=== PATIENT | female | born 1945 | race Caucasian/White ===

== ENCOUNTER 2019-08-30 17:22 | Inpatient (IN) | payer MEDICARE, OTHER ==
[2019-08-30] MEDS ORDERED: Sodium Chloride 0.9% 1000 ML 1,000 ML IV STA (17:34)
--- NOTE | 2019-08-30 17:42 | ERPHSYRPT ---
- History of Present Illness Time Seen by Provider: 08/30/19 17:33 Source: patient, family, EMS, old records Exam Limitations: no limitations Physician History: PT IS A SUPER OBESE 74 Y/O FEMALE VIA EMS C/O > 2 MOST OF GENERALIZED WEAKNESS AND FREQUENT FALLS AND A "BUTTOX ABSCESS I WANT YOU TO LOOK AT ." PT STATES SHE FELL IN SEPT CATCHING RIGHT FOOT ON RUG AND SINCE THEN FEELS HER RLE IS WEAK " I TELL IT TO KICK THE SHIT OUT OF SOMEONE AND IT DOESNT OBEY." NO OTHER FOCAL WEAKNESS. FEELS GLOBALLY WEAK. USES WALKER BUT STATES OVER LAST FEW WEEKS INCREASINGLY CANNOT STAND OR GET AROUND EVEN WITH THAT. HAS RIGHT BUTTOCK LESION SHE REPORTS IS FOLLOWED BY [facility] AND WAS TOLD WOULD NEED TO SEE A SURGEON. NOT SURE IF DRAINING. NO FEVER/DYSURIA/HEMATURIA/URGENCY/FREQUENCY/CP/ SOB/N/V/VISUAL CHANGES/DYSARTHRIA/AMS/HEAD INJURY. PT REPORTS DEPRESSION BUT NO SI/AH/HI. LIVES WITH HER . FEELS HARDER TO CARE FOR HER AT HOME DUE TO BODY HABITUS AND WEAKNESS. Allergies/Adverse Reactions: No Known Drug Allergies Allergy (Verified 08/30/19 17:40) Home Medications: Amlodipine Besylate/Benazepril [Amlodipine-Benazepril 10-40 mg] 1 each PO DAILY 03/03/18 [History] Apixaban [Eliquis 5 mg Tablet] 5 mg PO BID 03/03/18 [History] Ceftriaxone in Is-Osm Dextrose [Ceftriaxone 2 gm Piggyback] 2 gm IV DAILY [History] Furosemide 40 mg [Lasix 40 MG] 40 mg PO DAILY PRN 03/03/18 [History] Hydrocodone Bit/Acetaminophen [Hydrocodon-Acetaminophen 5-325] 1 each PO TID PRN 03/03/18 [History] Metformin HCl 500 mg [Glucophage 500 MG] 500 mg PO DAILY 03/03/18 [History ] Naproxen 250 mg PO Q8HPRN PRN 03/03/18 [History] raNITIdine HCl [Ranitidine HCl] 150 mg PO DAILY 03/03/18 [History] - Review of Systems Constitutional: No Symptoms, Chills, Fatigue, Weakness, Other (ANOREXIA), No Fever, No Lethargy, No Malaise, No Night Sweats, No Weight Loss Eyes: No Symptoms, No Discharge, No Eye Pain, No Eye Redness, No Itchy, No Photophobia, No Tearing, No Vision Changes, No Double Vision, No Foreign Body Sensation Ears, Nose, & Throat: No Symptoms, No Ear Pain, No Ear Discharge, No Hearing Changes, No Tinnitus, No Nose Congestion, No Nose Discharge, No Epistaxis, No Mouth Pain, No Mouth Swelling, No Throat Pain, No Throat Swelling, No Hoarse, No Painful Swallowing, No Stridor Respiratory: No Symptoms, No Cough, No Cyanosis, No Dyspnea, No Dyspnea on Exertion (ANDREWS), No Stridor, No Wheezing Cardiac: No Symptoms, No Chest Pain, No Edema, No Palpitations, No Syncope, No Orthopnea Abdominal/Gastrointestinal: No Symptoms, No Abdominal Pain, No Nausea, No Vomiting, No Diarrhea, No Constipation, No Hematemesis, No Hematochezia, No Melena, No Dysphagia, No Appetite Changes Genitourinary Symptoms: No Symptoms, No Dysuria, No Frequency, No Hematuria, No Hesitancy, No Incontinence, No Urgency, No Urinary Retention, No Flank Pain, No Menorrhagia, No , No Vaginal Bleeding, No Vaginal Discharge Musculoskeletal: No Symptoms, No Arthralgias, No Back Pain, No Neck Pain, No Deformity, No Fall, No Injury, No Joint Redness, No Joint Pain, No Joint Swelling, No Myalgias Skin: No Symptoms, Decubiti, Skin Lesions, No Cellulitis, No Induration, No Pruritis, No Rash, No Dryness Neurological: No Symptoms, No Dizziness, No Focal Weakness, No Gait Changes, No Headache, No Irritability, No Lethargy, No Paralysis, No Parasthesia, No Seizure , No Sensory Changes, No Speech Changes, No Tics, No Tremors, No Vertigo Psychological: No Symptoms, No Alcohol Abuse, No Drug Abuse, No Anxiety, No Depression, No Suicidal Ideations, No Homicidal Ideations, No Emotional Lability , No Hallucinations, No Memory Loss, No Mood Changes Endocrine: No Symptoms, No Polyuria, No Polydipsia, No Hair Changes, No Cold Intolerance, No Excessive Sweating, No Goiter Hematologic/Lymphatic: No Symptoms, No Anemia, No Blood Clots, No Easy Bleeding , No Gum Bleeding, No Easy Bruising, No Adenopathy Immunological/Allergic: No Symptoms All Other Systems: Reviewed and Negative - Past Medical History Pertinent Past Medical History: Yes Neurological History: No Pertinent History ENT History: No Pertinent History Cardiac History: Hypertension, Other Respiratory History: No Pertinent History Endocrine Medical History: Diabetes Type II Musculoskeletal History: Arthritis GI Medical History: Gallbladder Disease, Other History: Other Psycho-Social History: No Pertinent History Female Reproductive Disorders: No Pertinent History Other Medical History: kidney abcess right,constipation - Past Surgical History Past Surgical History: Yes Neuro Surgical History: No Pertinent History Cardiac: No Pertinent History Respiratory: No Pertinent History Gastrointestinal: Cholecystectomy Genitourinary: Other Musculoskeletal: No Pertinent History Female Surgical History: No Pertinent History Other Surgical History: kidney had J.P. drain placed - Social History Smoking Status: Never smoker Exposure to second hand smoke: No Drug Use: none - Nursing Vital Signs Nursing Vital Signs: Initial Vital Signs Temperature 97.9 F 08/30/19 17:29 Pulse Rate 65 08/30/19 17:29 Respiratory Rate 22 08/30/19 17:29 Blood Pressure 110/67 08/30/19 17:29 O2 Sat by Pulse Oximetry 97 08/30/19 17:29 Pain Scale Pain Intensity 0 - Physical Exam General Appearance: no apparent distress, alert, obese (SUPER OBESE), other ( PALE) Eye Exam: PERRL/EOMI, eyes nml inspection, other (fundi normal dallin), No scleral icterus, No pale conjunctivae, No photophobia, No EOM palsy/anisocoria Ears, Nose, Throat Exam: normal ENT inspection, TMs normal, pharynx normal, TM abnormal (L), other (uvula midline, floor of mouth soft), No moist mucous membranes, No dry mucous membranes, No TM abnormal (R), No pharyngeal erythema, No tonsillar exudate Neck Exam: normal inspection, non-tender, supple, full range of motion, No meningismus, No mass, No Brudzinski, No Kernig's, No carotid bruit, No JVD, No limited range of motion, No lymphadenopathy, No midline tenderness, No thyromegaly Respiratory Exam: normal breath sounds, lungs clear, airway intact, diminished breath sounds, No chest tenderness, No respiratory distress, No accessory muscle use, No prolonged expirations, No crackles/rales, No rhonchi, No wheezing , No stridor, No pleural rub Cardiovascular Exam: regular rate/rhythm, normal heart sounds, normal peripheral pulses, capillary refill <2 sec, No murmur, No friction rub, No gallop, No tachycardia, No bradycardia, No irregular, No capillary refill 2-3 sec, No capillary refill >3 sec, No edema, No pulse deficit Gastrointestinal/Abdomen Exam: soft, normal bowel sounds, other (SEVERE YEAST INFECTION IN PANNUS WITH DALLIN FLANK SATELLITS, RIGHT FLANK SMALL QUATER SIZE PRESSURE ULCER WITHOUT ERYTHEMA/WARMTH/EDEMA/PURULENCE ), No tenderness, No distention, No mass, No guarding, No ecchymosis, No pulsatile mass, No rebound, No hernia, No hepatomegaly, No organomegaly, No splenomegaly, No bruit Pelvic Exam: normal external exam Rectal Exam: deferred Back Exam: normal inspection, normal range of motion, other (neg slr dallin, no sacral anesthesia, dtr 2/4 dallin patella), No CVA tenderness, No vertebral tenderness, No rash, No decreased range of motion, No muscle spasm, No point tenderness Extremity Exam: normal inspection, normal range of motion, pelvis stable, No amputations, No contusions, No calf tenderness, No deformities, No lacerations, No parasthesia, No paralysis, No inflammation, No joint swelling, No limited range of motion, No pedal edema, No swelling, No tenderness Neurologic Exam: alert, oriented x 3, cooperative, international recruiter II-XII nml as tested, normal mood/affect, nml cerebellar function, nml station & gait, sensation nml, No motor deficits, No sensory deficit, No disoriented, No confusion, No agitation, No uncooperative, No intoxicated appearance, No depressed mood/affect , No motor weakness, No facial droop, No slurred speech, No aphasia, No dysarthria, No abnormal gait, No abnormal cerebellar tests, No abnormal international recruiter II- XII, No EOM palsy Skin Exam: normal color, warm, dry, decubitus (STAGE ONE IN BUTTOX), other ( SEVERE YEAST INFECTION IN PANNUS WITH DALLIN FLANK SATELLITS, RIGHT FLANK SMALL QUATER SIZE PRESSURE ULCER WITHOUT ERYTHEMA/WARMTH/EDEMA/PURULENCE ), No rash, No petechiae, No jaundice, No abrasion, No cyanosis, No diaphoresis, No embolic lesions, No ecchymosis, No jaundice, No laceration, No mottled, No pale Lymphatic Exam: No adenopathy SpO2 Interpretation: normal O2 Delivery: Room Air - Course Nursing assessment & vital signs reviewed: Yes EKG Interpreted by Me: RATE (71), A-fib, NORMAL AXIS, NORMAL QRS, NORMAL ST-T Ordered Tests: Active Orders 24 hr Category Date Time Status Accucheck STAT Care 08/30/19 17:34 Active Stagecraft Professor STAT Care 08/30/19 17:36 Active EKG-ER Only STAT Care 08/30/19 17:34 Active IV Insertion STAT Care 08/30/19 17:34 Active Orthostatic Vital Signs STAT Care 08/30/19 17:34 Active CHEST 1 VIEW (PORTABLE) Stat Exams 08/30/19 17:35 Ordered HEAD WITHOUT CONTRAST [CT] Stat Exams 08/30/19 17:35 Ordered CBC W DIFF Stat Lab 08/30/19 17:50 Completed CMP Stat Lab 08/30/19 17:50 Completed CULTURE,URINE Stat Lab 08/30/19 19:13 Ordered Lactic Acid Stat Lab 08/30/19 17:50 Results MAGNESIUM Stat Lab 08/30/19 17:50 Completed TROPONIN Q3H Lab 08/30/19 17:50 Received TROPONIN Q3H Lab 08/30/19 20:45 Ordered TROPONIN Q3H Lab 08/30/19 23:45 Ordered TROPONIN Q3H Lab 08/31/19 02:45 Ordered TROPONIN Q3H Lab 08/31/19 05:45 Ordered TSH [TSH, 3RD Generation] Stat Lab 08/30/19 17:50 Received UA W/RFX UR CULTURE Stat Lab 08/30/19 17:35 Ordered Medication Summary Discontinued Medications Generic Name Dose Route Start Last Admin Trade Name Freq PRN Reason Stop Dose Admin Fluconazole 150 mg 08/30/19 17:45 08/30/19 18:29 Diflucan PO 08/30/19 17:46 150 mg ONCE ONE Administration Fluconazole Confirm 08/30/19 18:20 Diflucan 100 Mg Administered 08/30/19 18:21 Dose 100 mg .ROUTE .STK-MED ONE Fluconazole Confirm 08/30/19 18:24 Diflucan 100 Mg Administered 08/30/19 18:25 Dose 100 mg .ROUTE .STK-MED ONE Sodium Chloride 1,000 mls @ 999 mls/hr 08/30/19 17:34 08/30/19 18:18 Sodium Chloride 0.9% 1000 Ml IV 08/30/19 18:34 999 mls/hr .Q1H1M STA Administration Sodium Chloride Confirm 08/30/19 18:16 Sodium Chloride 0.9% 1000 Ml Administered 08/30/19 18:17 Dose 1,000 mls @ ud .ROUTE .STK-MED ONE Lab/Rad Data: Laboratory Result Diagrams 08/30/19 17:50 08/30/19 17:50 Laboratory Results 08/30/19 08/30/19 08/30/19 Range/Units 17:50 17:50 17:50 WBC 6.7 (4.0-10.5) K/mm3 RBC 3.15 L (4.1-5.4) M/mm3 Hgb 8.1 L (12.0-16.0) gm/dl Hct 26.7 L (35-47) % MCV 84.8 (78-100) fl MCH 25.7 L (26-32) pg MCHC 30.3 L (32-36) g/dl RDW 16.4 H (11.5-14.0) % Plt Count 330 (150-450) K/mm3 MPV 9.4 (6-9.5) fl Gran % 74.7 H (36.0-66.0) % Eos # (Auto) 0.12 (0-0.5) Absolute Lymphs (auto) 1.22 (1.0-4.6) Absolute Monos (auto) 0.35 (0.0-1.3) Lymphocytes % 18.2 L (24.0-44.0) % Monocytes % 5.2 (0.0-12.0) % Eosinophils % 1.8 (0.00-5.0) % Basophils % 0.1 (0.0-0.4) % Absolute Granulocytes 5.00 (1.4-6.9) Basophils # 0.01 (0-0.4) Sodium 139 (137-145) mmol/L Potassium 4.0 (3.5-5.1) mmol/L Chloride 105 (98-107) mmol/L Carbon Dioxide 24 (22-30) mmol/L Anion Gap 14.5 (5-15) MEQ/L BUN 12 (7-17) mg/dL Creatinine 0.90 (0.52-1.04) mg/dL Estimated GFR > 60.0 ML/MIN Glucose 125 H (74-106) mg/dL Lactic Acid 3.0 H (0.4-2.0) Calcium 8.5 (8.4-10.2) mg/dL Magnesium 1.4 L (1.6-2.3) mg/dL Total Bilirubin 0.40 (0.2-1.3) mg/dL AST 22 (14-36) U/L ALT 14 (0-35) U/L Alkaline Phosphatase 128 H (38-126) U/L Serum Total Protein 6.1 L (6.3-8.2) g/dL Albumin 3.0 L (3.5-5.0) g/dL - Progress Progress: unchanged Progress Note: 08/30/19 18:31 HGB 8.1 NO OLD TO COMPARE WITH. PT DOES APPEAR PALE. WILL ATTEMPT HEMOCCULT BUT PT SUPER OBESE DIFFICULT TO MANEUVER DENIES MELENA WILL TYPE AND SCREEN. PLAN ADMISSION TO [facility]. PT DOES NOT AMBULATE. WILL PLACE PERLA CATHETER. FINDINGS REVIEWED WITH PT ALL QUESTIONS ANSWERED TO HER SATISFACTION 08/30/19 19:[address] ISBELL ACEPTS ADMIT CARE TRANSFERRED DR PAIGE WILL MONITOR CT HEAD, CXR, LABS, UA AND ADDRESS NECESSARY FINDINGS REVIEWED WITH PT ALL QUESTIONS ANSWERED TO HER SATISFACTION Discussed with Dr.: Jeffrey Counseled pt/family regarding: drug and/or alcohol abuse, lab results, diagnosis , need for follow-up, rad results, smoking cessation - Departure Departure Disposition: Observation Clinical Impression: Symptomatic anemia, Morbid obesity Condition: Fair Critical Care Time: No Referrals: JUANITA SMITH MD [Primary Care Provider] -
[2019-08-30] MEDS ORDERED: DIFLUCAN PO ONE (17:45)
[2019-08-30 18:03] LABS: BASOPHIL % 0.1 % (0.0-0.4); Basophil (Absolute #) 0.01 (0-0.4); Eosinophil % 1.8 % (0.00-5.0); Eosinophil (Absolute #) 0.12 (0-0.5); Hematocrit 26.7 % (35-47); Hemoglobin 8.1 gm/dl (12.0-16.0); Lymphocyte (Absolute #) 1.22 (1.0-4.6); Lymphocytes % 18.2 % (24.0-44.0); Mean Cell Volume 84.8 fl (78-100); Mean Corpuscular Hemoglobin 25.7 pg (26-32); Mean Corpuscular Hgb Concent. 30.3 g/dl (32-36); Mean Platelet Volume 9.4 fl (6-9.5); Monocyte (Absolute #) 0.35 (0.0-1.3); Monocytes % 5.2 % (0.0-12.0); Neutrophil % 74.7 % (36.0-66.0); Platelet Count 330 K/mm3 (150-450); Red Blood Count 3.15 M/mm3 (4.1-5.4); Red Cell Distribution Width 16.4 % (11.5-14.0); White Blood Count 6.7 K/mm3 (4.0-10.5)
[2019-08-30] MEDS ORDERED: Sodium Chloride 0.9% 1000 ML 1,000 ML ONE (18:16)
[2019-08-30] MEDS ORDERED: Diflucan 100 MG ONE ×2 (18:20→18:24)
[2019-08-30 18:27] LABS: ALKALINE PHOSPHATASE 128 U/L (38-126); ANION GAP 14.5 MEQ/L (5-15); BLOOD UREA NITROGEN 12 mg/dL (7-17); CHLORIDE 105 mmol/L (98-107); Calcium 8.5 mg/dL (8.4-10.2); Carbon Dioxide 24 mmol/L (22-30); Glucose 125 mg/dL (74-106); MAGNESIUM 1.4 mg/dL (1.6-2.3); SGOT/AST 22 U/L (14-36); SGPT/ALT 14 U/L (0-35); SODIUM 139 mmol/L (137-145); Total Protein 6.1 g/dL (6.3-8.2)
[2019-08-30] MEDS ORDERED: PROTONIX 40 MG IV IV ONE ×4 (19:22→22:02)
[2019-08-30 19:27] LABS: Appearance SLIGHTLY CLOUDY (CLEAR); Bilirubin NEGATIVE (NEGATIVE); Blood NEGATIVE Ery/ul (0-5); Glucose NEGATIVE (NEGATIVE); Ketones NEGATIVE (NEGATIVE); Leukocyte Esterase NEGATIVE (NEGATIVE); Mucus SLIGHT /HPF (NEGATIVE); Nitrite NEGATIVE (NEGATIVE); Protein,Urine Dip 100 (Negative); Specific Gravity 1.023 (1.005-1.025); Urobilinogen 4 mg/dL (0-1); WBC 0-2 /HPF (0-5)
[2019-08-30 20:18] LABS: ABO TYPING O; Antibody Screen NEGATIVE (NEGATIVE); RH TYPING POSITIVE
[2019-08-30] MEDS ORDERED: Sodium Chloride 0.9% 500 ML 500 ML IV ONE (21:58)
[2019-08-30] MEDS: PROTONIX 40 MG IV*** 80 MG in Sodium Chloride 0.9% 500 ML 500 ML IV SCH (22:09)
[2019-08-31] MEDS: ELIQUIS 2.5 MG TABLET PO SCH ×2 (02:06→10:06)
[2019-08-31] MEDS: BACTRIM DS TABLET PO SCH ×3 (02:06→22:37)
[2019-08-31] MEDS ORDERED: NON-FORMULARY ITEM (Acetaminophen [Tylenol Arthritis] 650 MG) PO PRN (09:42)
[2019-08-31] MEDS ORDERED: TYLENOL 325 MG PO PRN (09:44)
[2019-08-31] MEDS ORDERED: NON-FORMULARY ITEM (Atorvastatin Calcium [Atorvastatin Calcium] 10 MG) PO SCH (10:00)
[2019-08-31] MEDS ORDERED: NON-FORMULARY ITEM (Amlodipine Besylate/Benazepril [Amlodipine-Benazepril 10-40 Mg] 1 EACH PO SCH (10:00)
[2019-08-31] MEDS: PROTONIX 40 MG IV*** 80 MG in Sodium Chloride 0.9% 500 ML 500 ML IV SCH ×2 (10:04→23:13)
[2019-08-31] MEDS: Glucophage 500 MG PO SCH (10:05)
[2019-08-31] MEDS: Lotensin 10 MG PO SCH ×2 (10:05→14:42)
[2019-08-31] MEDS: NORVASC 5 MG PO SCH ×2 (10:05→14:42)
[2019-08-31] MEDS ORDERED: FLUZONE HIGH-DOSE 2019-20 SYR IM ONE (10:30)
[2019-08-31] MEDS: NYSTOP POWDER 15 GM TP SCH ×2 (11:26→22:37)
--- NOTE | 2019-08-31 15:47 | PCM.HP ---
History of Present Illness - Chief Complaint Chief Complaint: Weakness History of Present Illness: is a 74 year old female seen this am following ER admission for anemia and weakness. Patient reports she has had more difficulty getting around at home and feels like her legs are going to give out. She reports feeling more weak. Patient also reports that she was concerned she has an skin abscess near her buttock area. Patient reports that she has her and son at home to help her. She reports she has to use a walker and wheelchair to get around. Patient reports that she is SOB most of the time with ambulation. Patient reports that she has been iron def anemic since she was a child. She reports that she would be instructed to take iron supplementation but would have such severe stomach pain she would only take it for about 3 days then discontinue. Patient denies any dark stools. Patient is unaware if she snores or has sleep apnea. Patient reports that she is too afraid to transfer to a chair today due to weakness and concerns about getting out of the chair. Patient reports a hx of HTN but states since she has been in the hospital it has been low. - Review of Systems Constitutional: Weakness, No Fever Eyes: No Vision Changes, No Double Vision Ears, Nose, & Throat: No Nose Congestion, No Sinus Drainage, No Throat Pain Respiratory: Short Of Breath, No Cough, No Wheezing Cardiac: No Chest Pain, No Edema Abdominal/Gastrointestinal: No Abdominal Pain, No Nausea, No Vomiting, No Diarrhea, No Constipation, No Hematochezia, No Melena Genitourinary Symptoms: No Dysuria, No Frequency, No Hematuria Musculoskeletal: Other (Patient denies knee pain but she feels unstable with her knees) Skin: Induration, Skin Lesions (Area on R hip area that patient thought was an abscess) Neurological: Other (Generalized weakness), No Focal Weakness, No Headache Hematologic/Lymphatic: Anemia Medications & Allergies Home Medications: Home Medication List Amlodipine Besylate/Benazepril [Amlodipine-Benazepril 10-40 mg] 1 each PO DAILY 03/03/18 [History Confirmed 08/30/19] Apixaban [Eliquis 5 mg Tablet] 5 mg PO BID 03/03/18 [History Confirmed ] Metformin HCl 500 mg [Glucophage 500 MG] 500 mg PO DAILY 03/03/18 [ History Confirmed 08/30/19] Acetaminophen [Tylenol Arthritis] 650 mg PO BID PRN PRN 08/30/19 [History Confirmed 08/30/19] Atorvastatin Calcium 10 mg PO DAILY 08/30/19 [History Confirmed 08/30/19] Omeprazole 1 cap PO DAILY 08/30/19 [History Confirmed 08/30/19] Sulfamethoxazole/Trimethoprim [Sulfamethoxazole-Tmp Ds Tablet] 1 tab PO Q12H [History Confirmed 08/30/19] Allergies/Adverse Reactions: Allergies Allergy/AdvReac Type Severity Reaction Status Date / Time No Known Drug Allergies Allergy Verified 08/30/19 17:40 - Past Medical History Past Medical History: Yes Neurological History: No Pertinent History ENT History: No Pertinent History Cardiac History: Arrhythmia, Hypertension, Other Respiratory History: No Pertinent History Endocrine Medical History: Diabetes Type II Musculoskelatal History: Arthritis GI Medical History: Gallbladder Disease, Other History: Other Pyscho-Social History: No Pertinent History Reproductive Disorders: No Pertinent History Comment: kidney abcess right - Female History Are you now?: No - Past Surgical History Past Surgical History: Yes Neuro Surgical History: No Pertinent History Cardiac History: No Pertinent History Respiratory Surgery: No Pertinent History GI Surgical History: Cholecystectomy, Hernia Repair Genitourinary Surgical Hx: Other Musculskeletal Surgical Hx: No Pertinent History Female Surgical History: No Pertinent History Other Surgical History: kidney had J.P. drain placed - Social History Smoking Status: Never smoker Exposure to second hand smoke: Yes Alcohol: None Drug Use: none - Physical Exam Vital Signs: Vital Signs - 24 hr Temp Pulse Resp BP Pulse Ox 08/31/19 12:00 97.7 F 76 19 143/61 91 L 08/31/19 07:50 98.2 F 69 19 113/49 93 L 08/31/19 04:00 98.3 F 74 20 105/51 93 L 08/31/19 00:00 98.3 F 69 20 95/52 94 L 08/30/19 20:10 98.3 F 70 18 100/47 97 08/30/19 20:06 98.3 F 70 18 100/47 98 08/30/19 18:50 97.9 F 75 24 120/42 96 08/30/19 18:13 75 24 120/42 95 08/30/19 17:29 97.9 F 65 22 110/67 97 General Appearance: mild distress, other (Patient is morbidly obese with limited mobility) Neurologic Exam: alert, oriented x 3, cooperative, other (Flat affect with depressed mood) Eye Exam: eyes nml inspection, pale conjunctivae, No scleral icterus Ears, Nose, Throat Exam: moist mucous membranes Neck Exam: normal inspection Respiratory Exam: normal breath sounds, lungs clear, No respiratory distress Cardiovascular Exam: regular rate/rhythm, normal heart sounds, other (Chronic venous stasis changes), No murmur Gastrointestinal/Abdomen Exam: soft, normal bowel sounds, No tenderness, No distention Pelvic Exam: not done Rectal Exam: No deferred Back Exam: normal inspection Extremity Exam: other (Chronic venous stasis changes lower extremities) Skin Exam: warm, dry, pale, other (Chronic venous stasis changes lower extremities), No jaundice Wound Assessment: Skin/Wound Assessment Wound/Incision Assessment Start: 08/30/19 20: 53 Text: Status: Active Freq: Q6H Protocol: Document 08/31/19 08:00 SATYA (Rec: 08/31/19 11:08 SATYA [id number]) Wound/Incision Assessment Right Abdomen Wound Assessment Shift Assessment Wound Type SHEARING AREA Drainage Amount None Results - Labs Lab/Micro Results: Accuchecks Accucheck Value: 110 Accucheck Value: 112 Lab Results-Last 24 Hours 08/30/19 08/30/19 08/30/19 Range/Units 17:35 17:50 17:50 WBC 6.7 (4.0-10.5) K/mm3 RBC 3.15 L (4.1-5.4) M/mm3 Hgb 8.1 L (12.0-16.0) gm/dl Hct 26.7 L (35-47) % MCV 84.8 (78-100) fl MCH 25.7 L (26-32) pg MCHC 30.3 L (32-36) g/dl RDW 16.4 H (11.5-14.0) % Plt Count 330 (150-450) K/mm3 MPV 9.4 (6-9.5) fl Gran % 74.7 H (36.0-66.0) % Eos # (Auto) 0.12 (0-0.5) Absolute Lymphs (auto) 1.22 (1.0-4.6) Absolute Monos (auto) 0.35 (0.0-1.3) Lymphocytes % 18.2 L (24.0-44.0) % Monocytes % 5.2 (0.0-12.0) % Eosinophils % 1.8 (0.00-5.0) % Basophils % 0.1 (0.0-0.4) % Absolute Granulocytes 5.00 (1.4-6.9) Basophils # 0.01 (0-0.4) Sodium (137-145) mmol/L Potassium (3.5-5.1) mmol/L Chloride (98-107) mmol/L Carbon Dioxide (22-30) mmol/L Anion Gap (5-15) MEQ/L BUN (7-17) mg/dL Creatinine (0.52-1.04) mg/dL Estimated GFR ML/MIN Glucose (74-106) mg/dL Hemoglobin A1c (4.5-6.0) % Lactic Acid 3.0 H (0.4-2.0) Calcium (8.4-10.2) mg/dL Magnesium (1.6-2.3) mg/dL Total Bilirubin (0.2-1.3) mg/dL AST (14-36) U/L ALT (0-35) U/L Alkaline Phosphatase (38-126) U/L Troponin I (0.000-0.034) ng/mL Serum Total Protein (6.3-8.2) g/dL Albumin (3.5-5.0) g/dL TSH 3rd Generation (0.47-4.68) mIU/L Urine Color YELLOW (YELLOW) Urine Appearance SLIGHTLY CLOUDY (CLEAR) Urine pH 5.0 (5-6) Ur Specific [place] 1.023 (1.005-1.025) Urine Protein 100 (Negative) Urine Ketones NEGATIVE (NEGATIVE) Urine Blood NEGATIVE (0-5) Umberto/ul Urine Nitrite NEGATIVE (NEGATIVE) Urine Bilirubin NEGATIVE (NEGATIVE) Urine Urobilinogen 4 (0-1) mg/dL Ur Leukocyte Esterase NEGATIVE (NEGATIVE) Urine WBC (Auto) 0-2 (0-5) /HPF Urine RBC (Auto) 6-10 (0-2) /HPF U Epithel Cells (Auto) NONE (FEW) /HPF Urine Bacteria (Auto) NONE (NEGATIVE) /HPF Urine Mucus (Auto) SLIGHT (NEGATIVE) /HPF Urine Culture Reflexed ORDERED SEPARATELY (NO) Urine Glucose NEGATIVE (NEGATIVE) mg/dL ABO Group Rh Factor Antibody Screen (NEGATIVE) 08/30/19 08/30/19 08/30/19 Range/Units 17:50 17:50 17:50 WBC (4.0-10.5) K/mm3 RBC (4.1-5.4) M/mm3 Hgb (12.0-16.0) gm/dl Hct (35-47) % MCV (78-100) fl MCH (26-32) pg MCHC (32-36) g/dl RDW (11.5-14.0) % Plt Count (150-450) K/mm3 MPV (6-9.5) fl Gran % (36.0-66.0) % Eos # (Auto) (0-0.5) Absolute Lymphs (auto) (1.0-4.6) Absolute Monos (auto) (0.0-1.3) Lymphocytes % (24.0-44.0) % Monocytes % (0.0-12.0) % Eosinophils % (0.00-5.0) % Basophils % (0.0-0.4) % Absolute Granulocytes (1.4-6.9) Basophils # (0-0.4) Sodium 139 (137-145) mmol/L Potassium 4.0 (3.5-5.1) mmol/L Chloride 105 (98-107) mmol/L Carbon Dioxide 24 (22-30) mmol/L Anion Gap 14.5 (5-15) MEQ/L BUN 12 (7-17) mg/dL Creatinine 0.90 (0.52-1.04) mg/dL Estimated GFR > 60.0 ML/MIN Glucose 125 H (74-106) mg/dL Hemoglobin A1c (4.5-6.0) % Lactic Acid (0.4-2.0) Calcium 8.5 (8.4-10.2) mg/dL Magnesium 1.4 L (1.6-2.3) mg/dL Total Bilirubin 0.40 (0.2-1.3) mg/dL AST 22 (14-36) U/L ALT 14 (0-35) U/L Alkaline Phosphatase 128 H (38-126) U/L Troponin I < 0.012 (0.000-0.034) ng/mL Serum Total Protein 6.1 L (6.3-8.2) g/dL Albumin 3.0 L (3.5-5.0) g/dL TSH 3rd Generation 4.960 H (0.47-4.68) mIU/L Urine Color (YELLOW) Urine Appearance (CLEAR) Urine pH (5-6) Ur Specific [place] (1.005-1.025) Urine Protein (Negative) Urine Ketones (NEGATIVE) Urine Blood (0-5) Umberto/ul Urine Nitrite (NEGATIVE) Urine Bilirubin (NEGATIVE) Urine Urobilinogen (0-1) mg/dL Ur Leukocyte Esterase (NEGATIVE) Urine WBC (Auto) (0-5) /HPF Urine RBC (Auto) (0-2) /HPF U Epithel Cells (Auto) (FEW) /HPF Urine Bacteria (Auto) (NEGATIVE) /HPF Urine Mucus (Auto) (NEGATIVE) /HPF Urine Culture Reflexed (NO) Urine Glucose (NEGATIVE) mg/dL ABO Group Rh Factor Antibody Screen (NEGATIVE) 08/30/19 08/30/19 08/30/19 Range/Units 18:50 21:00 21:30 WBC (4.0-10.5) K/mm3 RBC (4.1-5.4) M/mm3 Hgb (12.0-16.0) gm/dl Hct (35-47) % MCV (78-100) fl MCH (26-32) pg MCHC (32-36) g/dl RDW (11.5-14.0) % Plt Count (150-450) K/mm3 MPV (6-9.5) fl Gran % (36.0-66.0) % Eos # (Auto) (0-0.5) Absolute Lymphs (auto) (1.0-4.6) Absolute Monos (auto) (0.0-1.3) Lymphocytes % (24.0-44.0) % Monocytes % (0.0-12.0) % Eosinophils % (0.00-5.0) % Basophils % (0.0-0.4) % Absolute Granulocytes (1.4-6.9) Basophils # (0-0.4) Sodium (137-145) mmol/L Potassium (3.5-5.1) mmol/L Chloride (98-107) mmol/L Carbon Dioxide (22-30) mmol/L Anion Gap (5-15) MEQ/L BUN (7-17) mg/dL Creatinine (0.52-1.04) mg/dL Estimated GFR ML/MIN Glucose (74-106) mg/dL Hemoglobin A1c (4.5-6.0) % Lactic Acid 1.6 (0.4-2.0) Calcium (8.4-10.2) mg/dL Magnesium (1.6-2.3) mg/dL Total Bilirubin (0.2-1.3) mg/dL AST (14-36) U/L ALT (0-35) U/L Alkaline Phosphatase (38-126) U/L Troponin I < 0.012 (0.000-0.034) ng/mL Serum Total Protein (6.3-8.2) g/dL Albumin (3.5-5.0) g/dL TSH 3rd Generation (0.47-4.68) mIU/L Urine Color (YELLOW) Urine Appearance (CLEAR) Urine pH (5-6) Ur Specific [place] (1.005-1.025) Urine Protein (Negative) Urine Ketones (NEGATIVE) Urine Blood (0-5) Umberto/ul Urine Nitrite (NEGATIVE) Urine Bilirubin (NEGATIVE) Urine Urobilinogen (0-1) mg/dL Ur Leukocyte Esterase (NEGATIVE) Urine WBC (Auto) (0-5) /HPF Urine RBC (Auto) (0-2) /HPF U Epithel Cells (Auto) (FEW) /HPF Urine Bacteria (Auto) (NEGATIVE) /HPF Urine Mucus (Auto) (NEGATIVE) /HPF Urine Culture Reflexed (NO) Urine Glucose (NEGATIVE) mg/dL ABO Group O Rh Factor POSITIVE Antibody Screen NEGATIVE (NEGATIVE) 08/30/19 08/31/19 08/31/19 Range/Units 23:55 03:00 06:10 WBC (4.0-10.5) K/mm3 RBC (4.1-5.4) M/mm3 Hgb (12.0-16.0) gm/dl Hct (35-47) % MCV (78-100) fl MCH (26-32) pg MCHC (32-36) g/dl RDW (11.5-14.0) % Plt Count (150-450) K/mm3 MPV (6-9.5) fl Gran % (36.0-66.0) % Eos # (Auto) (0-0.5) Absolute Lymphs (auto) (1.0-4.6) Absolute Monos (auto) (0.0-1.3) Lymphocytes % (24.0-44.0) % Monocytes % (0.0-12.0) % Eosinophils % (0.00-5.0) % Basophils % (0.0-0.4) % Absolute Granulocytes (1.4-6.9) Basophils # (0-0.4) Sodium (137-145) mmol/L Potassium (3.5-5.1) mmol/L Chloride (98-107) mmol/L Carbon Dioxide (22-30) mmol/L Anion Gap (5-15) MEQ/L BUN (7-17) mg/dL Creatinine (0.52-1.04) mg/dL Estimated GFR ML/MIN Glucose (74-106) mg/dL Hemoglobin A1c 6.22 H (4.5-6.0) % Lactic Acid (0.4-2.0) Calcium (8.4-10.2) mg/dL Magnesium (1.6-2.3) mg/dL Total Bilirubin (0.2-1.3) mg/dL AST (14-36) U/L ALT (0-35) U/L Alkaline Phosphatase (38-126) U/L Troponin I < 0.012 < 0.012 (0.000-0.034) ng/mL Serum Total Protein (6.3-8.2) g/dL Albumin (3.5-5.0) g/dL TSH 3rd Generation (0.47-4.68) mIU/L Urine Color (YELLOW) Urine Appearance (CLEAR) Urine pH (5-6) Ur Specific [place] (1.005-1.025) Urine Protein (Negative) Urine Ketones (NEGATIVE) Urine Blood (0-5) Umberto/ul Urine Nitrite (NEGATIVE) Urine Bilirubin (NEGATIVE) Urine Urobilinogen (0-1) mg/dL Ur Leukocyte Esterase (NEGATIVE) Urine WBC (Auto) (0-5) /HPF Urine RBC (Auto) (0-2) /HPF U Epithel Cells (Auto) (FEW) /HPF Urine Bacteria (Auto) (NEGATIVE) /HPF Urine Mucus (Auto) (NEGATIVE) /HPF Urine Culture Reflexed (NO) Urine Glucose (NEGATIVE) mg/dL ABO Group Rh Factor Antibody Screen (NEGATIVE) 08/31/19 Range/Units 07:00 WBC (4.0-10.5) K/mm3 RBC (4.1-5.4) M/mm3 Hgb (12.0-16.0) gm/dl Hct (35-47) % MCV (78-100) fl MCH (26-32) pg MCHC (32-36) g/dl RDW (11.5-14.0) % Plt Count (150-450) K/mm3 MPV (6-9.5) fl Gran % (36.0-66.0) % Eos # (Auto) (0-0.5) Absolute Lymphs (auto) (1.0-4.6) Absolute Monos (auto) (0.0-1.3) Lymphocytes % (24.0-44.0) % Monocytes % (0.0-12.0) % Eosinophils % (0.00-5.0) % Basophils % (0.0-0.4) % Absolute Granulocytes (1.4-6.9) Basophils # (0-0.4) Sodium (137-145) mmol/L Potassium (3.5-5.1) mmol/L Chloride (98-107) mmol/L Carbon Dioxide (22-30) mmol/L Anion Gap (5-15) MEQ/L BUN (7-17) mg/dL Creatinine (0.52-1.04) mg/dL Estimated GFR ML/MIN Glucose (74-106) mg/dL Hemoglobin A1c (4.5-6.0) % Lactic Acid (0.4-2.0) Calcium (8.4-10.2) mg/dL Magnesium (1.6-2.3) mg/dL Total Bilirubin (0.2-1.3) mg/dL AST (14-36) U/L ALT (0-35) U/L Alkaline Phosphatase (38-126) U/L Troponin I < 0.012 (0.000-0.034) ng/mL Serum Total Protein (6.3-8.2) g/dL Albumin (3.5-5.0) g/dL TSH 3rd Generation (0.47-4.68) mIU/L Urine Color (YELLOW) Urine Appearance (CLEAR) Urine pH (5-6) Ur Specific [place] (1.005-1.025) Urine Protein (Negative) Urine Ketones (NEGATIVE) Urine Blood (0-5) Umberto/ul Urine Nitrite (NEGATIVE) Urine Bilirubin (NEGATIVE) Urine Urobilinogen (0-1) mg/dL Ur Leukocyte Esterase (NEGATIVE) Urine WBC (Auto) (0-5) /HPF Urine RBC (Auto) (0-2) /HPF U Epithel Cells (Auto) (FEW) /HPF Urine Bacteria (Auto) (NEGATIVE) /HPF Urine Mucus (Auto) (NEGATIVE) /HPF Urine Culture Reflexed (NO) Urine Glucose (NEGATIVE) mg/dL ABO Group Rh Factor Antibody Screen (NEGATIVE) Accuchecks Accucheck Value: 110 Accucheck Value: 112 Assessment/Plan (1) Symptomatic anemia Current Visit: Yes Status: Acute Assessment & Plan: Will get repeat hgb if trending down will have to consider blood products. Would like to start patient on IV iron therapy and see if symptoms improve. occult blood for stool pending BM. Patient has iron studies pending as well. Will continue to monitor VS. Code(s): D64.9 - ANEMIA, UNSPECIFIED (2) Physical deconditioning Current Visit: Yes Status: Acute Assessment & Plan: Discussed this with patient and she reports she feels her knees are going to give out on her. She uses a walker and wheelchair. She is starting to develop some skin lesions possibly from immobility or during her transfers. Ordered PT here. Patient will likely need outpatient PT if she is agreeable. Code(s): R53.81 - OTHER MALAISE (3) Skin lesion Current Visit: Yes Status: Acute Assessment & Plan: Wound care consulted. Started patient on Bactrim. Will continue to monitor lesion and if necessary set patient up with outpatient wound care. Code(s): L98.9 - DISORDER OF THE SKIN AND SUBCUTANEOUS TISSUE, UNSPECIFIED (4) Morbid obesity Current Visit: Yes Status: Acute Code(s): E66.01 - MORBID (SEVERE) OBESITY DUE TO EXCESS CALORIES
[2019-08-31 17:12] LABS: BASOPHIL % 0.2 % (0.0-0.4); Basophil (Absolute #) 0.01 (0-0.4); Eosinophil % 2.6 % (0.00-5.0); Eosinophil (Absolute #) 0.16 (0-0.5); Hematocrit 23.6 % (35-47); Hemoglobin 7.1 gm/dl (12.0-16.0); Lymphocytes % 24.1 % (24.0-44.0); Mean Cell Volume 86.1 fl (78-100); Mean Corpuscular Hemoglobin 25.9 pg (26-32); Mean Corpuscular Hgb Concent. 30.1 g/dl (32-36); Mean Platelet Volume 8.7 fl (6-9.5); Monocyte (Absolute #) 0.35 (0.0-1.3); Monocytes % 5.6 % (0.0-12.0); Neutrophil % 67.5 % (36.0-66.0); Platelet Count 257 K/mm3 (150-450); Red Blood Count 2.74 M/mm3 (4.1-5.4); Red Cell Distribution Width 16.5 % (11.5-14.0); White Blood Count 6.2 K/mm3 (4.0-10.5)
[2019-08-31 17:47] LABS: Iron 13 ug/dL (37-170); Iron Saturation 5 % (20-39); TIBC 266 ug/dL (265-462)
[2019-08-31 17:59] LABS: ANION GAP 10.5 MEQ/L (5-15); BLOOD UREA NITROGEN 11 mg/dL (7-17); CHLORIDE 106 mmol/L (98-107); Calcium 8.1 mg/dL (8.4-10.2); Carbon Dioxide 26 mmol/L (22-30); Creatinine 1 0.83 mg/dL (0.52-1.04); Glucose 101 mg/dL (74-106); Potassium 3.8 mmol/L (3.5-5.1); SODIUM 139 mmol/L (137-145)
[2019-08-31] MEDS ORDERED: Sodium Chloride 0.9% 500 ML 500 ML IV SCH (18:30)
[2019-08-31 19:23] LABS: CROSS MATCH (PRBC) COMPATIBLE (COMPATIBLE)
[2019-08-31] MEDS: Zocor 10MG PO SCH (22:37)
[2019-09-01] MEDS: Lotensin 10 MG PO SCH (09:24)
[2019-09-01] MEDS: Glucophage 500 MG PO SCH (09:24)
[2019-09-01] MEDS: NORVASC 5 MG PO SCH (09:24)
[2019-09-01] MEDS: NYSTOP POWDER 15 GM TP SCH ×2 (09:25→20:32)
[2019-09-01] MEDS: PROTONIX 40 MG IV*** 80 MG in Sodium Chloride 0.9% 500 ML 500 ML IV SCH ×2 (11:52→22:32)
--- NOTE | 2019-09-01 13:54 | PCM.NOTE ---
Date and Time: 09/01/19 1349 Subjective Assessment: 74 yr old female seen and examined this am. Patient reports that she feels fine. She doesnt feel any different after blood products were given. Patient was upset about the source of blood loss which has yet to be determined. Patient has not noticed dark stools at home and no reported bleeding from vagina and no reported hematuria. Patient was reporting weakness prior to hospitalization. She is unsure if she still feels weak as it is mainly related to her standing and the feeling she has that her knee feels like it will give out. Patient reports some lower extremity swelling and that she took a water pills 1-2 weeks ago. Patient is unsure if it made much difference. - Review of Systems Constitutional: Weakness Eyes: No Vision Changes, No Double Vision Ears, Nose, & Throat: No Nose Congestion, No Throat Pain Respiratory: Short Of Breath (with movement), No Cough Cardiac: Edema, No Chest Pain, No Palpitations Abdominal/Gastrointestinal: No Abdominal Pain, No Nausea, No Vomiting, No Diarrhea, No Constipation Genitourinary Symptoms: No Dysuria, No Frequency, No Hematuria Musculoskeletal: Other (R knee buckling) Neurological: No Dizziness Psychological: No Anxiety, No Depression Hematologic/Lymphatic: Anemia Objective Exam General Appearance: no apparent distress Neurologic Exam: alert, oriented x 3, cooperative, normal mood/affect Skin Exam: normal color, warm, dry, other (Patient's color appears slightly improved), No rash Wound Assessment: Skin/Wound Assessment Wound/Incision Assessment Start: 08/30/19 20: 53 Text: Status: Active Freq: Q6H Protocol: Document 09/01/19 02:00 AW (Rec: 09/01/19 03:34 AW [id number]) Wound/Incision Assessment Right Abdomen Wound Assessment Shift Assessment Wound Type SHEARING AREA Drainage Amount None Comment BARRIER CREAM APPLIED Wound Photo Photo Taken Yes Date: 08/30/19 Eye Exam: eyes nml inspection, No scleral icterus Ears, Nose, Throat Exam: moist mucous membranes Neck Exam: normal inspection Respiratory Exam: normal breath sounds, lungs clear, No chest tenderness, No respiratory distress Cardiovascular Exam: regular rate/rhythm, normal heart sounds, No murmur Gastrointestinal/Abdomen Exam: soft, normal bowel sounds, No tenderness, No distention, No guarding, No rebound Extremity Exam: pedal edema, other OBJECTIVE DATA Vital Signs: Vital Signs - 24 hr Temp Pulse Resp BP Pulse Ox 09/01/19 12:00 98.1 F 68 20 114/56 91 L 09/01/19 08:00 97.6 F 65 20 118/56 91 L 09/01/19 04:00 97.9 F 79 18 122/60 92 L 08/31/19 23:54 98.4 F 69 20 120/52 93 L 08/31/19 20:00 98.2 F 68 20 125/55 93 L 08/31/19 16:00 98.2 F 83 19 111/46 92 L Pain Assessment - Last Documented Pain Intensity 0 Pain Scale Used FLACC Intake and Output: Intake & Output 08/30/19 08/31/19 09/01/19 09/02/19 11:59 11:59 11:59 11:59 Intake Total 926 2460 Output Total 250 850 Balance 676 1610 Weight 160.3 kg Lab Results: Accuchecks Date 08/31/19 Time 22:00 Accucheck Value: 124 Accucheck Value: 98 Accucheck Value: 112 Accucheck Value: 105 Lab Results-Last 24 Hours 08/31/19 08/31/19 08/31/19 Range/Units 17:10 17:10 17:10 WBC 6.2 (4.0-10.5) K/mm3 RBC 2.74 L (4.1-5.4) M/mm3 Hgb 7.1 L (12.0-16.0) gm/dl Hct 23.6 L (35-47) % MCV 86.1 (78-100) fl MCH 25.9 L (26-32) pg MCHC 30.1 L (32-36) g/dl RDW 16.5 H (11.5-14.0) % Plt Count 257 (150-450) K/mm3 MPV 8.7 (6-9.5) fl Gran % 67.5 H (36.0-66.0) % Eos # (Auto) 0.16 (0-0.5) Absolute Lymphs (auto) 1.50 (1.0-4.6) Absolute Monos (auto) 0.35 (0.0-1.3) Lymphocytes % 24.1 (24.0-44.0) % Monocytes % 5.6 (0.0-12.0) % Eosinophils % 2.6 (0.00-5.0) % Basophils % 0.2 (0.0-0.4) % Absolute Granulocytes 4.20 (1.4-6.9) Basophils # 0.01 (0-0.4) Sodium 139 (137-145) mmol/L Potassium 3.8 (3.5-5.1) mmol/L Chloride 106 (98-107) mmol/L Carbon Dioxide 26 (22-30) mmol/L Anion Gap 10.5 (5-15) MEQ/L BUN 11 (7-17) mg/dL Creatinine 0.83 (0.52-1.04) mg/dL Estimated GFR > 60.0 ML/MIN Glucose 101 (74-106) mg/dL Calcium 8.1 L (8.4-10.2) mg/dL Iron < 10 L (37-170) ug/dL TIBC (265-462) ug/dL Iron Saturation (20-39) % TSH 3rd Generation 3.880 (0.47-4.68) mIU/L Crossmatch (COMPATIBLE) 08/31/19 08/31/19 08/31/19 Range/Units 17:10 17:36 17:37 WBC (4.0-10.5) K/mm3 RBC (4.1-5.4) M/mm3 Hgb (12.0-16.0) gm/dl Hct (35-47) % MCV (78-100) fl MCH (26-32) pg MCHC (32-36) g/dl RDW (11.5-14.0) % Plt Count (150-450) K/mm3 MPV (6-9.5) fl Gran % (36.0-66.0) % Eos # (Auto) (0-0.5) Absolute Lymphs (auto) (1.0-4.6) Absolute Monos (auto) (0.0-1.3) Lymphocytes % (24.0-44.0) % Monocytes % (0.0-12.0) % Eosinophils % (0.00-5.0) % Basophils % (0.0-0.4) % Absolute Granulocytes (1.4-6.9) Basophils # (0-0.4) Sodium (137-145) mmol/L Potassium (3.5-5.1) mmol/L Chloride (98-107) mmol/L Carbon Dioxide (22-30) mmol/L Anion Gap (5-15) MEQ/L BUN (7-17) mg/dL Creatinine (0.52-1.04) mg/dL Estimated GFR ML/MIN Glucose (74-106) mg/dL Calcium (8.4-10.2) mg/dL Iron 13 L (37-170) ug/dL TIBC 266 (265-462) ug/dL Iron Saturation 5 L (20-39) % TSH 3rd Generation (0.47-4.68) mIU/L Crossmatch COMPATIBLE COMPATIBLE (COMPATIBLE) 09/01/19 Range/Units 00:00 WBC (4.0-10.5) K/mm3 RBC (4.1-5.4) M/mm3 Hgb 8.0 L (12.0-16.0) gm/dl Hct 26.0 L (35-47) % MCV (78-100) fl MCH (26-32) pg MCHC (32-36) g/dl RDW (11.5-14.0) % Plt Count (150-450) K/mm3 MPV (6-9.5) fl Gran % (36.0-66.0) % Eos # (Auto) (0-0.5) Absolute Lymphs (auto) (1.0-4.6) Absolute Monos (auto) (0.0-1.3) Lymphocytes % (24.0-44.0) % Monocytes % (0.0-12.0) % Eosinophils % (0.00-5.0) % Basophils % (0.0-0.4) % Absolute Granulocytes (1.4-6.9) Basophils # (0-0.4) Sodium (137-145) mmol/L Potassium (3.5-5.1) mmol/L Chloride (98-107) mmol/L Carbon Dioxide (22-30) mmol/L Anion Gap (5-15) MEQ/L BUN (7-17) mg/dL Creatinine (0.52-1.04) mg/dL Estimated GFR ML/MIN Glucose (74-106) mg/dL Calcium (8.4-10.2) mg/dL Iron (37-170) ug/dL TIBC (265-462) ug/dL Iron Saturation (20-39) % TSH 3rd Generation (0.47-4.68) mIU/L Crossmatch (COMPATIBLE) Multi-Disciplinary Progress Notes: Multi-Disciplinary Progress Notes 08/31/19 23:50 Case Management Note by Anila Noble DISCHARGE PLAN REVIEWED. LIVES AT HOME WITH SPOUSE. USES WALKER AND WHEELCHAIR IN HER HOME. HAS A RAMP, W/C, AND COMMODE. PLAN IS TO RETURN HOME TO FORMER LEVEL OF FUNCTION. WOULD LIKE O.P. PT ARRANGED WELL O.P. WOUND CARE. Initialized on 08/31/19 23:50 - END OF NOTE Assessment/Plan (1) Symptomatic anemia Current Visit: Yes Status: Acute Assessment & Plan: It is difficult to ascertain from patient if she feels weak as a result of her anemia vs feeling that her legs are weak when supporting her standing. Patient is mainly bedbound and could not really clarify "weakness" symptom. Patient was transfused one unit which only raised her hgb 1 point. Still attempting to collect stools sample to assess GI blood loss as cause for anemia. Patient has not had BM. Patient is known to be chronically anemic and will not take PO iron as she can not tolerate it. Patient will likely require iron transfusion. Code(s): D64.9 - ANEMIA, UNSPECIFIED (2) Physical deconditioning Current Visit: Yes Status: Acute Assessment & Plan: Again patient reports that she is mainly bed bound. Due to morbid obesity and deconditioning patient is experience knee buckling. Patient has PT ordered to help with reconditioning. She will likely need this as outpatient. Patient uses walker and wheelchair at home. Code(s): R53.81 - OTHER MALAISE (3) Skin lesion Current Visit: Yes Status: Acute Assessment & Plan: Wound care assessed yesterday. Patient reports being on Bactrim at home. Resumed bactrim here. Patient may need to be switched to clindamycin for wound healing and early signs of cellulitis Code(s): L98.9 - DISORDER OF THE SKIN AND SUBCUTANEOUS TISSUE, UNSPECIFIED (4) Morbid obesity Current Visit: Yes Status: Acute Code(s): E66.01 - MORBID (SEVERE) OBESITY DUE TO EXCESS CALORIES
[2019-09-01] MEDS: BACTRIM DS TABLET PO SCH (15:02)
[2019-09-01 16:27] LABS: HAPTOGLOBIN 300 mg/dL (30-220); TRANSFERRIN 187 mg/dL (200-360)
[2019-09-01] MEDS ORDERED: Ferrlecit 62.5 MG/5 Ml IV ONE (17:20)
[2019-09-01] MEDS: Zocor 10MG PO SCH (20:32)
[2019-09-02] MEDS: BACTRIM DS TABLET PO SCH ×2 (02:46→16:34)
[2019-09-02] MEDS ORDERED: Sodium Chloride 0.9% 10 ML FLUSH Syringe IV PRN (06:45)
[2019-09-02 08:15] LABS: Absolute Neutrophil Ct (ANC) 3.54 (1.4-6.9); BASOPHIL % 0.4 % (0.0-0.4); Basophil (Absolute #) 0.02 (0-0.4); Eosinophil % 4.9 % (0.00-5.0); Eosinophil (Absolute #) 0.27 (0-0.5); Hematocrit 27.7 % (35-47); Hemoglobin 8.5 gm/dl (12.0-16.0); Lymphocyte (Absolute #) 1.35 (1.0-4.6); Lymphocytes % 24.5 % (24.0-44.0); Mean Cell Volume 85.8 fl (78-100); Mean Corpuscular Hemoglobin 26.3 pg (26-32); Mean Corpuscular Hgb Concent. 30.7 g/dl (32-36); Monocyte (Absolute #) 0.33 (0.0-1.3); Neutrophil % 64.2 % (36.0-66.0); Platelet Count 275 K/mm3 (150-450); Red Blood Count 3.23 M/mm3 (4.1-5.4); Red Cell Distribution Width 16.4 % (11.5-14.0); White Blood Count 5.5 K/mm3 (4.0-10.5)
[2019-09-02 08:58] LABS: ANION GAP 9.3 MEQ/L (5-15); BLOOD UREA NITROGEN 10 mg/dL (7-17); CHLORIDE 106 mmol/L (98-107); Calcium 8.4 mg/dL (8.4-10.2); Carbon Dioxide 28 mmol/L (22-30); Creatinine 1 0.78 mg/dL (0.52-1.04); Glucose 105 mg/dL (74-106); Potassium 3.8 mmol/L (3.5-5.1); SODIUM 140 mmol/L (137-145)
[2019-09-02] MEDS: Lotensin 10 MG PO SCH (09:51)
[2019-09-02] MEDS: NORVASC 5 MG PO SCH (09:51)
[2019-09-02] MEDS: Glucophage 500 MG PO SCH (09:52)
[2019-09-02] MEDS: NYSTOP POWDER 15 GM TP SCH ×2 (09:52→22:41)
[2019-09-02] MEDS ORDERED: Venofer 100 MG/5 ML IV ONE (10:00)
[2019-09-02] MEDS ORDERED: Venofer 100 MG/5 ML*** 300 MG in Sodium Chloride 0.9% 250 ML 250 ML IV SCH (10:00)
[2019-09-02] MEDS: Protonix 40MG Tablet PO SCH (11:44)
--- NOTE | 2019-09-02 13:45 | PCM.NOTE ---
Date and Time: 09/02/19 1342 Subjective Assessment: doing ok - Review of Systems Constitutional: No Fever, No Chills Eyes: No Symptoms Ears, Nose, & Throat: No Symptoms Respiratory: No Cough, No Short Of Breath Cardiac: No Chest Pain, No Edema, No Syncope Abdominal/Gastrointestinal: No Abdominal Pain, No Nausea, No Vomiting, No Diarrhea Genitourinary Symptoms: No Dysuria Musculoskeletal: No Back Pain, No Neck Pain Skin: No Rash Neurological: No Dizziness, No Focal Weakness, No Sensory Changes Psychological: No Symptoms Endocrine: No Symptoms Hematologic/Lymphatic: No Symptoms Immunological/Allergic: No Symptoms Objective Exam General Appearance: no apparent distress, alert Neurologic Exam: alert, oriented x 3, cooperative, normal mood/affect, nml cerebellar function, sensation nml, No motor deficits Skin Exam: normal color, warm, dry Wound Assessment: Skin/Wound Assessment Wound/Incision Assessment Start: 08/30/19 20: 53 Text: Status: Active Freq: Q6H Protocol: Document 09/02/19 08:00 AR (Rec: 09/02/19 08:[address]) Wound/Incision Assessment Right Abdomen Wound Assessment Shift Assessment Wound Type SHEARING AREA Comment BARRIER CREAM APPLIED prn Wound Photo Photo Taken Yes Date: 08/30/19 Eye Exam: PERRL, EOMI, eyes nml inspection Ears, Nose, Throat Exam: normal ENT inspection, pharynx normal, moist mucous membranes Neck Exam: normal inspection, non-tender, supple, full range of motion Respiratory Exam: normal breath sounds, lungs clear, No respiratory distress Cardiovascular Exam: regular rate/rhythm, normal heart sounds Gastrointestinal/Abdomen Exam: soft, No tenderness, No mass Extremity Exam: normal inspection, normal range of motion Back Exam: normal inspection, normal range of motion, No CVA tenderness, No vertebral tenderness Pelvic Exam: deferred Rectal Exam: deferred OBJECTIVE DATA Vital Signs: Vital Signs - 24 hr Temp Pulse Resp BP Pulse Ox 09/02/19 08:00 97.9 F 61 18 113/59 93 L 09/02/19 04:00 98.2 F 68 21 115/63 91 L 09/02/19 00:00 98.1 F 76 20 113/59 93 L 09/01/19 22:00 92 L 09/01/19 20:00 97.8 F 71 20 114/54 92 L 09/01/19 16:00 97.8 F 78 19 117/58 90 L Oxygen-Last 24 hours Oxygen Flowrate (L/min)-RT 21 Pain Assessment - Last Documented Pain Intensity 0 Pain Scale Used FLACC Intake and Output: Intake & Output 08/31/19 09/01/19 09/02/19 09/03/19 11:59 11:59 11:59 11:59 Intake Total 926 2460 2583 Output Total 076 850 850 Balance 676 1610 1733 Weight 160.3 kg Lab Results: Accuchecks Date 09/01/19 Time 21:30 Accucheck Value: 115 Accucheck Value: 103 Accucheck Value: 175 Accucheck Value: 110 Lab Results-Last 24 Hours 08/31/19 09/01/19 09/02/19 Range/Units 17:10 15:55 08:00 WBC 5.5 (4.0-10.5) K/mm3 RBC 3.23 L (4.1-5.4) M/mm3 Hgb 8.5 L (12.0-16.0) gm/dl Hct 27.7 L (35-47) % MCV 85.8 (78-100) fl MCH 26.3 (26-32) pg MCHC 30.7 L (32-36) g/dl RDW 16.4 H (11.5-14.0) % Plt Count 275 (150-450) K/mm3 MPV 9.0 (6-9.5) fl Gran % 64.2 (36.0-66.0) % Eos # (Auto) 0.27 (0-0.5) Absolute Lymphs (auto) 1.35 (1.0-4.6) Absolute Monos (auto) 0.33 (0.0-1.3) Lymphocytes % 24.5 (24.0-44.0) % Monocytes % 6.0 (0.0-12.0) % Eosinophils % 4.9 (0.00-5.0) % Basophils % 0.4 (0.0-0.4) % Absolute Granulocytes 3.54 (1.4-6.9) Basophils # 0.02 (0-0.4) Haptoglobin 300 H (30-220) mg/dL Sodium (137-145) mmol/L Potassium (3.5-5.1) mmol/L Chloride (98-107) mmol/L Carbon Dioxide (22-30) mmol/L Anion Gap (5-15) MEQ/L BUN (7-17) mg/dL Creatinine (0.52-1.04) mg/dL Estimated GFR ML/MIN Glucose (74-106) mg/dL Calcium (8.4-10.2) mg/dL Transferrin 187 L (200-360) mg/dL Stool Occult Bld Scrn NEGATIVE (NEGATIVE) 09/02/19 Range/Units 08:00 WBC (4.0-10.5) K/mm3 RBC (4.1-5.4) M/mm3 Hgb (12.0-16.0) gm/dl Hct (35-47) % MCV (78-100) fl MCH (26-32) pg MCHC (32-36) g/dl RDW (11.5-14.0) % Plt Count (150-450) K/mm3 MPV (6-9.5) fl Gran % (36.0-66.0) % Eos # (Auto) (0-0.5) Absolute Lymphs (auto) (1.0-4.6) Absolute Monos (auto) (0.0-1.3) Lymphocytes % (24.0-44.0) % Monocytes % (0.0-12.0) % Eosinophils % (0.00-5.0) % Basophils % (0.0-0.4) % Absolute Granulocytes (1.4-6.9) Basophils # (0-0.4) Haptoglobin (30-220) mg/dL Sodium 140 (137-145) mmol/L Potassium 3.8 (3.5-5.1) mmol/L Chloride 106 (98-107) mmol/L Carbon Dioxide 28 (22-30) mmol/L Anion Gap 9.3 (5-15) MEQ/L BUN 10 (7-17) mg/dL Creatinine 0.78 (0.52-1.04) mg/dL Estimated GFR > 60.0 ML/MIN Glucose 105 (74-106) mg/dL Calcium 8.4 (8.4-10.2) mg/dL Transferrin (200-360) mg/dL Stool Occult Bld Scrn (NEGATIVE) Assessment/Plan (1) Anemia due to blood loss, chronic Current Visit: Yes Status: Acute Code(s): D50.0 - IRON DEFICIENCY ANEMIA SECONDARY TO BLOOD LOSS (CHRONIC) (2) Diabetes mellitus Current Visit: Yes Status: Acute Qualifiers: Diabetes mellitus type: type 2 Diabetes 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
[2019-09-02] MEDS: Sodium Chloride 0.9% 10 ML FLUSH Syringe IV SCH ×2 (16:34→22:41)
[2019-09-02] MEDS: Zocor 10MG PO SCH (22:41)
[2019-09-03] MEDS: BACTRIM DS TABLET PO SCH ×2 (03:24→15:06)
[2019-09-03] MEDS: Sodium Chloride 0.9% 10 ML FLUSH Syringe IV SCH (03:24)
[2019-09-03] MEDS: Glucophage 500 MG PO SCH (09:19)
[2019-09-03] MEDS: Lotensin 10 MG PO SCH (09:19)
[2019-09-03] MEDS: Protonix 40MG Tablet PO SCH (09:22)
[2019-09-03] MEDS: NORVASC 5 MG PO SCH (09:22)
[2019-09-03] MEDS: NYSTOP POWDER 15 GM TP SCH (09:23)
[2019-09-03 11:25] VITALS: BP 117/55; PULSE 74; O2SAT 96
--- NOTE | 2019-09-03 13:07 | XRAY ---
Indication: custodial placement. Comparison: None Portable chest demonstrates right infrahilar soft tissue fullness with air, probable large hiatal hernia. There is also mild right hemidiaphragm elevation. No focal infiltrate, consolidation, or large effusion. Heart is not enlarged for AP portable technique. Bony thorax intact with mild osteopenia and degenerative changes. Impression: 1. Right infrahilar soft tissue fullness with air. Suspect large hiatal hernia which could be confirmed with CT chest. 2. Negative for acute pneumonic process or CHF.
--- NOTE | 2019-09-03 13:08 | PCM.DS ---
Discharge Summary Date of Admission: 08/31/19 17:10 Admitting Physician: JUANITA SMITH Primary Care Provider: JUANITA SMITH Allergies Allergies No Known Drug Allergies Allergy (Verified 08/30/19 17:40) Hospital Summary - Hospital Course Hospital Course: Chief Complaint Diagnosis ANEMIA, WEAKNESS Allergies Allergy/AdvReac Type Severity Reaction Status Date / Time No Known Drug Allergies Allergy Verified 08/30/19 17:40 Vital Signs (Last 24 hours) Temp Pulse Resp BP Pulse Ox 09/03/19 11:24 98.7 F 74 18 117/55 96 09/03/19 07:29 98.3 F 81 93 H 119/58 09/03/19 04:00 97.7 F 74 20 123/57 94 L 09/03/19 00:00 97.2 F 74 24 103/54 93 L 09/02/19 20:00 99 F 59 L 20 111/51 94 L 09/02/19 16:00 99.0 F 63 18 114/50 90 L Home Medications Medication Instructions Recorded Confirmed Last Taken Type Acetaminophen [Tylenol Arthritis] 650 mg PO BID PRN PRN 08/30/19 08/30/19 History Atorvastatin Calcium 10 mg PO DAILY 08/30/19 08/30/19 08/30/19 14:00 History Omeprazole 1 cap PO DAILY 08/30/19 08/30/19 08/30/19 14:00 History Sulfamethoxazole/Trimethoprim 1 tab PO Q12H 08/30/19 08/30/19 08/30/19 14:00 History [Sulfamethoxazole-Tmp Ds Tablet] Current Medications Generic Name Dose Route Start Last Admin Trade Name Freq PRN Reason Stop Dose Admin Acetaminophen 650 mg 08/31/19 09:44 Tylenol 325 Mg PO 09/30/19 09:43 BID PRN PRN Amlodipine Besylate 10 mg 08/31/19 10:00 09/03/19 09:22 Norvasc 5 Mg PO 09/30/19 09:59 10 mg DAILY LAUREN Administration Apixaban 5 mg 08/30/19 22:00 08/31/19 10:06 Eliquis 2.5 Mg Tablet PO 09/29/19 21:59 Not Given BID LAUREN Benazepril HCl 40 mg 08/31/19 10:00 09/03/19 09:19 Lotensin 10 Mg PO 09/30/19 09:59 40 mg DAILY LAUREN Administration Metformin HCl 500 mg 08/31/19 10:00 09/03/19 09:19 Glucophage 500 Mg PO 09/30/19 09:59 500 mg DAILY LAUREN Administration Nystatin 1 gm 08/31/19 11:30 09/03/19 09:23 Nystop Powder 15 Gm TP 09/30/19 11:29 1 gm BID LAUREN Administration Pantoprazole Sodium 40 mg 09/02/19 12:00 09/03/19 09:22 Protonix 40mg Tablet PO 10/02/19 11:59 40 mg DAILY LAUREN Administration Simvastatin 10 mg 08/31/19 22:00 09/02/19 22:41 Zocor 10mg PO 09/30/19 21:59 10 mg HS LAUREN Administration Sodium Chloride 10 ml 09/02/19 14:00 09/03/19 03:24 Sodium Chloride 0.9% 10 Ml Flush Syringe IV 10/02/19 13:59 10 ml Q8HT LAUREN Administration Sodium Chloride 10 ml 09/02/19 06:45 09/02/19 06:52 Sodium Chloride 0.9% 10 Ml Flush Syringe IV 10/02/19 06:44 10 ml PRN PRN Administration IV Maintenance Trimethoprim/Sulfamethoxazole 1 tab 08/31/19 02:00 09/03/19 03:24 Bactrim Ds Tablet PO 09/30/19 01:59 1 tab Q12H LAUREN Administration Discontinued Medications Generic Name Dose Route Start Last Admin Trade Name Freq PRN Reason Stop Dose Admin Ferric Sodium Gluconate Complex 125 mg 09/01/19 17:20 09/02/19 07:52 Ferrlecit 62.5 Mg/5 Ml IV 09/01/19 17:21 Not Given ONCE ONE Fluconazole 150 mg 08/30/19 17:45 08/30/19 18:29 Diflucan PO 08/30/19 17:46 150 mg ONCE ONE Administration Fluconazole Confirm 08/30/19 18:20 Diflucan 100 Mg Administered 08/30/19 18:21 Dose 100 mg .ROUTE .STK-MED ONE Fluconazole Confirm 08/30/19 18:24 Diflucan 100 Mg Administered 08/30/19 18:25 Dose 100 mg .ROUTE .STK-MED ONE Sodium Chloride 1,000 mls @ 999 mls/hr 08/30/19 17:34 08/30/19 18:18 Sodium Chloride 0.9% 1000 Ml IV 08/30/19 18:34 999 mls/hr .Q1H1M STA Administration Sodium Chloride Confirm 08/30/19 18:16 Sodium Chloride 0.9% 1000 Ml Administered 08/30/19 18:17 Dose 1,000 mls @ ud .ROUTE .STK-MED ONE Pantoprazole Sodium 80 mg/ 500 mls @ 50 mls/hr 08/30/19 19:30 09/01/19 22:32 Sodium Chloride IV 09/29/19 19:29 50 mls/hr .Q10H LAUREN 50 mls/hr Administration Sodium Chloride Confirm 08/30/19 21:58 Sodium Chloride 0.9% 500 Ml Administered 08/30/19 21:59 Dose 500 mls @ ud IV .STK-MED ONE Sodium Chloride 500 mls @ 50 mls/hr 08/31/19 18:30 08/31/19 18:33 Sodium Chloride 0.9% 500 Ml IV 09/30/19 18:29 50 mls/hr .Q10H LAUREN Administration Iron Sucrose 300 mg/ Sodium 265 mls @ 176.667 mls/hr 09/02/19 10:00 09/02/19 09:51 Chloride IV 09/02/19 11:29 176.667 mls/hr 1000 LAUREN Administration Pantoprazole Sodium 80 mg 08/30/19 19:22 08/30/19 19:29 Protonix 40 Mg Iv IV 08/30/19 19:23 80 mg STAT ONE Administration Pantoprazole Sodium Confirm 08/30/19 19:26 Protonix 40 Mg Iv Administered 08/30/19 19:27 Dose 80 mg IV .STK-MED ONE Pantoprazole Sodium Confirm 08/30/19 21:57 Protonix 40 Mg Iv Administered 08/30/19 21:58 Dose 40 mg IV .STK-MED ONE Pantoprazole Sodium Confirm 08/30/19 22:02 Protonix 40 Mg Iv Administered 08/30/19 22:03 Dose 40 mg IV .STK-MED ONE Intake & Output (Last 24 hours) 09/01/19 09/02/19 09/03/19 09/04/19 11:59 11:59 11:59 11:59 Intake Total 2460 2583 2025 480 Output Total 094 259 6629 Balance 1610 1733 1025 480 Orders (Last 24 hours) Category Date Time Status CHEST 1 VIEW (PORTABLE) Urgent Exams 09/03/19 12:49 Taken CBC Urgent Lab 09/03/19 12:53 Ordered NaCl 0.9% 10 ML FLUSH [Sodium Chloride 0.9% 10 ML FLUSH Med 09/02/19 14:00 Active Syringe] 10 ml IV Q8HT Patient Care Notes (Last 24 hours) 09/02/19 15:52 Case Management Note by Lamar Valladares REFERRAL FAXED TO [facility] AT THIS TIME, Initialized on 09/02/19 15:52 - END OF NOTE 09/02/19 15:12 Case Management Note by Lamar Valladares ATTEMPTED TO MAKE REFERRAL TO [facility] - LEFT VOICEMAIL MESSAGE WITH CRUZ KIM, RN, ADMISSION COORDINATOR. . Initialized on 09/02/19 15:12 - END OF NOTE 09/02/19 14:30 Physical Therapy Note by Yazmin Wan PT. REPORTS FEELING LSIGHTLY STRONGER SINCE ADMISSION D/T BLOOD TRANSFUSION AND IV IRON RX. PT. STILL CONCERNED ABOUT ABILITY TO RETURN HOME D/T WEAKNESS AND FALL HX. PT. PERFORMED 10 REPS LE EXERCISE W/ 1# CUFF WEIGHT. PERFORMED SIT TO STAND W/ MOD ASSIST X 2 FROM CHAIR. REQUIRES V.C. TO SCOOT FORWARD IN CHAIR AND FLEX TRUNK TO INCREASE EASE OF TRANSFER. PT. AMBULATED 20' W/ BARIATRIC ROLLER WALKER AND MIN TO MOD ASSIST X 2 . PT. HAS SHORT STRIDE LENGTH BILATERAL LES, BUT DOES MAINTAIN WIDE EFRAIN. PT. EXHIBITS SOMEWHAT FLEXED POSTURE AND PUTS A GOOD DEAL OF PRESSURE ON UES W/ GAIT. FEEL PT. WOUDL BENEFIT FORM SNF STAY FOR REHAB TO INCREASE STRENGTH AND FUNCTIONAL MOBILITY AND GAIT INDEPENDENCE TO MAXIMIZE POTENTIAL AT HOME. WILL CONTINUE P.T. UNTL D/ C. YAZMIN WAN PT Initialized on 09/02/19 14:30 - END OF NOTE 09/02/19 13:40 (created 09/02/19 15:14) Case Management Note by Lamar Valladares DR. ROUNDED AND EVALUATED, DISCUSSED PLAN OF CARE, ENCOURAGED REHAB STAY AT [facility] ON DISCHARGE. ALL QUESTIONS ANSWERED BY DR. SMITH. PT VERBALIZED UNDERSTANDING AND ABLE TO REPEAT ALL INFORMATION. Initialized on 09/02/19 15:14 - END OF NOTE - Vitals & Intake/Output Vital Signs: Vital Signs Temperature 98.7 F 09/03/19 11:24 Pulse Rate 74 09/03/19 11:24 Respiratory Rate 18 09/03/19 11:24 Blood Pressure 117/55 09/03/19 11:24 O2 Sat by Pulse Oximetry 96 09/03/19 11:24 Intake & Output: Intake & Output 09/01/19 09/02/19 09/03/19 09/04/19 11:59 11:59 11:59 11:59 Intake Total 2460 2583 2025 480 Output Total 490 024 3941 Balance 1610 1733 1025 480 - Lab Result Diagrams: 09/02/19 08:00 09/02/19 08:00 Lab Results-Last 24 Hrs: Accuchecks Date 09/02/19 Time 21:30 Accucheck Value: 96 Accucheck Value: 130 Accucheck Value: 119 Micro Results-Entire Visit: Microbiology 08/30/19 19:00 Urine Culture - Final Catherized NO GROWTH Accuchecks Date 09/02/19 Time 21:30 Accucheck Value: 96 Accucheck Value: 130 Accucheck Value: 119 - Radiology Exams Ordered Rad Exams-Entire Visit: Radiology Procedures Category Date Time Status CHEST 1 VIEW (PORTABLE) Urgent Exams 09/03/19 12:49 Taken - Procedures and Test Procedures and Tests throughout Hospitalization: Therapy Orders & Screens 08/30/19 20:53 OT Screen per Nursing Assess Comment: Protocol Order Physician Instructions: Greater than 3 points order OT Admission Screening Reason For Exam: Triggered on Admission Diagnosis: Anemia Open Wound/Cellutlitis/Pressure Ulcers: Yes Acute Fx/ORIF/Change in wt bearing status: Yes Severe MUSCULOSKELETAL pain: No ADL Dysfunction: No Acute CVA w/Hemiparesis/Hemiplegia: No Decreased Functional Mobility/Strength: Yes Sprain/Strain: No Acute Post-op Mobility Dysfunction: No Total Points: 11 PT Screen per Nursing Assess Comment: Protocol Order Physician Instructions: Greater than 3 points order PT Admission Screenin Reason For Exam: Triggered on Admission Diagnosis: Anemia Open Wound/Cellutlitis/Pressure Ulcers: Yes Acute Fx/ORIF/Change in wt bearing status: Yes Severe MUSCULOSKELETAL pain: No ADL Dysfunction: No Acute CVA w/Hemiparesis/Hemiplegia: No Decreased Functional Mobility/Strength: Yes Sprain/Strain: No Acute Post-op Mobility Dysfunction: No Total Points: 11 08/31/19 12:52 PT Eval & Treat (MD Order) ROUTINE Reason for Eval:: Skin breakdown and overall generalized weakness Diagnosis: Weakness Discharge Exam General Appearance: no apparent distress, alert Neurologic Exam: alert, oriented x 3, cooperative, normal mood/affect, nml cerebellar function, sensation nml, No motor deficits Eye Exam: PERRL, EOMI, eyes nml inspection Ears, Nose, Throat Exam: normal ENT inspection, pharynx normal, moist mucous membranes Neck Exam: normal inspection, non-tender, supple, full range of motion Respiratory Exam: normal breath sounds, lungs clear, No respiratory distress Cardiovascular Exam: regular rate/rhythm, normal heart sounds Gastrointestinal/Abdomen Exam: soft, No tenderness, No mass Pelvic Exam: deferred Rectal Exam: deferred Back Exam: normal inspection, normal range of motion, No CVA tenderness, No vertebral tenderness Extremity Exam: normal inspection, normal range of motion Skin Exam: normal color, warm, dry Wound Assessment: Skin/Wound Assessment Wound/Incision Assessment Start: 08/30/19 20: 53 Text: Status: Active Freq: Q6H Protocol: Document 09/03/19 08:00 AR (Rec: 09/03/19 08:05 AR [id number]) Wound/Incision Assessment Right Abdomen Wound Assessment Shift Assessment Wound Type [place] Comment Barrier cream applied prn Final Diagnosis/Problem List - Final Discharge Diagnosis/Problem (1) Anemia due to blood loss, chronic Current Visit: Yes Status: Resolved Assessment & Plan: Last Vital Signs Temp 98.7 F 09/03/19 11:24 Pulse 74 09/03/19 11:24 Resp 18 09/03/19 11:24 BP 117/55 09/03/19 11:24 Pulse Ox 96 09/03/19 11:24 Allergies No Known Drug Allergies Allergy (Verified 08/30/19 17:40) Active Medications Acetaminophen (Tylenol 325 Mg) 650 mg PO BID PRN PRN Stop: 09/30/19 09:43 Amlodipine Besylate (Norvasc 5 Mg) 10 mg PO DAILY LAUREN Stop: 09/30/19 09:59 Last Admin: 09/03/19 09:22 Dose: 10 mg Apixaban (Eliquis 2.5 Mg Tablet) 5 mg PO BID LAUREN Stop: 09/29/19 21:59 Last Admin: 08/31/19 10:06 Dose: Not Given Benazepril HCl (Lotensin 10 Mg) 40 mg PO DAILY LAUREN Stop: 09/30/19 09:59 Last Admin: 09/03/19 09:19 Dose: 40 mg Metformin HCl (Glucophage 500 Mg) 500 mg PO DAILY LAUREN Stop: 09/30/19 09:59 Last Admin: 09/03/19 09:19 Dose: 500 mg Nystatin (Nystop Powder 15 Gm) 1 gm TP BID LAUREN Stop: 09/30/19 11:29 Last Admin: 09/03/19 09:23 Dose: 1 gm Pantoprazole Sodium (Protonix 40mg Tablet) 40 mg PO DAILY LAUREN Stop: 10/02/19 11:59 Last Admin: 09/03/19 09:22 Dose: 40 mg Simvastatin (Zocor 10mg) 10 mg PO HS LAUREN Stop: 09/30/19 21:59 Last Admin: 09/02/19 22:41 Dose: 10 mg Sodium Chloride (Sodium Chloride 0.9% 10 Ml Flush Syringe) 10 ml IV Q8HT LAUREN Stop: 10/02/19 13:59 Last Admin: 09/03/19 03:24 Dose: 10 ml Sodium Chloride (Sodium Chloride 0.9% 10 Ml Flush Syringe) 10 ml IV PRN PRN PRN Reason: IV Maintenance Stop: 10/02/19 06:44 Last Admin: 09/02/19 06:52 Dose: 10 ml Trimethoprim/Sulfamethoxazole (Bactrim Ds Tablet) 1 tab PO Q12H LAUREN Stop: 09/30/19 01:59 Last Admin: 09/03/19 03:24 Dose: 1 tab Intake & Output 09/03/19 09/04/19 11:59 11:59 Intake Total 2025 480 Output Total 1000 Balance 1025 480 Orders 09/03/19 12:49 CHEST 1 VIEW (PORTABLE) Urgent 09/03/19 12:53 CBC Urgent Code(s): D50.0 - IRON DEFICIENCY ANEMIA SECONDARY TO BLOOD LOSS (CHRONIC) (2) Diabetes mellitus Current Visit: Yes Status: Chronic Code(s): E11.9 - TYPE 2 DIABETES MELLITUS WITHOUT COMPLICATIONS (3) Morbid obesity Current Visit: Yes Status: Acute Code(s): E66.01 - MORBID (SEVERE) OBESITY DUE TO EXCESS CALORIES - Discharge Discharge Date: 09/03/19 Disposition: XFER OTHER Condition: Stable Prescriptions: Continue Metformin HCl 500 mg [Glucophage 500 MG] 500 mg PO DAILY Apixaban [Eliquis 5 mg Tablet] 5 mg PO BID Amlodipine Besylate/Benazepril [Amlodipine-Benazepril 10-40 mg] 1 each PO DAILY Omeprazole 1 cap PO DAILY Sulfamethoxazole/Trimethoprim [Sulfamethoxazole-Tmp Ds Tablet] 1 tab PO Q12H Atorvastatin Calcium 10 mg PO DAILY Acetaminophen [Tylenol Arthritis] 650 mg PO BID PRN PRN PRN Reason: Pain Follow up with: JUANITA SMITH MD [Primary Care Provider] - 1 Week
[2019-09-03 13:22] LABS: Hematocrit 31.3 % (35-47); Hemoglobin 9.3 gm/dl (12.0-16.0); Mean Corpuscular Hemoglobin 25.5 pg (26-32); Mean Corpuscular Hgb Concent. 29.7 g/dl (32-36); Mean Platelet Volume 8.9 fl (6-9.5); Platelet Count 330 K/mm3 (150-450); Red Blood Count 3.64 M/mm3 (4.1-5.4); White Blood Count 7.1 K/mm3 (4.0-10.5)
[2019-09-03] MEDS ORDERED: Aplisol ID ONE (16:06)
== END 2019-09-03 16:26 | DRG 812 ==
LOC: ED 17:22 → MED SURG 20:00 → OBSVTOIN 08-31 17:10
PROVIDERS: ADMIT General Practice; ATTEND General Practice
DX: D50.0 Iron deficiency anemia secondary to blood loss (chronic) (principal); Z68.43 Body mass index [BMI] 50.0-59.9, adult; E11.9 Type 2 diabetes mellitus without complications; I10 Essential (primary) hypertension; I48.91 Unspecified atrial fibrillation; E66.01 Morbid (severe) obesity due to excess calories; R53.81 Other malaise; L98.9 Disorder of the skin and subcutaneous tissue, unspecified; R09.02 Hypoxemia; I87.8 Other specified disorders of veins; Z79.01 Long term (current) use of anticoagulants; Z79.899 Other long term (current) drug therapy
CPT/HCPCS: 36000; 36415; 36430; 71045; 80048; 80053; 81001; 82270; 82962; 83010; 83036; 83540; 83550; 83605; 83735; 84443; 84466; 84484; 85014; 85018; 85025; 85027; 86850; 86900; 86901; 86922; 87086; 93005; 93041; 93268; 94762; 96374; 96375; 97110; 97162; 97530; 99285; G0378; P9016; 90662; J1756; A9270-GY

== ENCOUNTER 2020-01-03 12:27 | Inpatient (IN) | payer MEDICARE, OTHER ==
[2020-01-03] MEDS ORDERED: Sodium Chloride 0.9% 1000 ML 1,000 ML IV STA (12:54)
[2020-01-03] MEDS ORDERED: Sodium Chloride 0.9% 1000 ML 1,000 ML ONE (13:07)
[2020-01-03 13:09] LABS: Absolute Neutrophil Ct (ANC) 5.34 (1.4-6.9); BASOPHIL % 0.2 % (0.0-0.4); Basophil (Absolute #) 0.01 (0-0.4); Eosinophil % 1.8 % (0.00-5.0); Eosinophil (Absolute #) 0.12 (0-0.5); Hematocrit 30.7 % (35-47); Hemoglobin 8.8 gm/dl (12.0-16.0); Lymphocyte (Absolute #) 0.76 (1.0-4.6); Lymphocytes % 11.5 % (24.0-44.0); Mean Cell Volume 82.1 fl (78-100); Mean Corpuscular Hemoglobin 23.5 pg (26-32); Mean Corpuscular Hgb Concent. 28.7 g/dl (32-36); Monocyte (Absolute #) 0.36 (0.0-1.3); Monocytes % 5.5 % (0.0-12.0); Platelet Count 223 K/mm3 (150-450); Red Blood Count 3.74 M/mm3 (4.1-5.4); White Blood Count 6.6 K/mm3 (4.0-10.5)
[2020-01-03 13:25] LABS: ALBUMIN 3.2 g/dL (3.5-5.0); ALKALINE PHOSPHATASE 188 U/L (38-126); ANION GAP 8.2 MEQ/L (5-15); BLOOD UREA NITROGEN 17 mg/dL (7-17); CHLORIDE 102 mmol/L (98-107); Calcium 7.9 mg/dL (8.4-10.2); Carbon Dioxide 34 mmol/L (22-30); Creatinine 1 0.67 mg/dL (0.52-1.04); Glucose 92 mg/dL (74-106); Potassium 3.6 mmol/L (3.5-5.1); SGOT/AST 24 U/L (14-36); SGPT/ALT 12 U/L (0-35); SODIUM 140 mmol/L (137-145); Total Protein 6.4 g/dL (6.3-8.2)
[2020-01-03 13:26] LABS: Appearance CLEAR (CLEAR); Bilirubin NEGATIVE (NEGATIVE); Blood NEGATIVE Ery/ul (0-5); Epithelial Cells RARE /HPF (FEW); Glucose NEGATIVE (NEGATIVE); Ketones NEGATIVE (NEGATIVE); Leukocyte Esterase NEGATIVE (NEGATIVE); Mucus SLIGHT /HPF (NEGATIVE); Nitrite NEGATIVE (NEGATIVE); Protein,Urine Dip 30 (Negative); Specific Gravity 1.017 (1.005-1.025); Urobilinogen 4 mg/dL (0-1); WBC 0-2 /HPF (0-5)
--- NOTE | 2020-01-03 14:03 | ERPHSYRPT ---
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 Triage Nursing Assessment: Pt arrives per EMS reprots fell when weak hitting head on left side just above eye has bruising noted denies any loc, pt a@ox3. Denies any pain to head. States weakness x 3 weeks though this am pt was increasingly weak. EMS states pt o2 sat was low 90's upon arrival placed on 3l nc Physician History: This is a 74-year-old morbidly obese, diabetic female who has a history of atrial fibrillation, hypertension and chronic anemia. Patient's primary care doctor is Dr. Doyle. Patient has been experiencing weakness over the last 3 weeks. It is increasing. Patient fell today and hit her head. It was brought in by the EMS service. Patient states that she chronically has intermittent chest pain and there is no new chest pain present. She denies abdominal pain. She has no pain in any extremity. Occurred: this morning Reason for Fall: unknown Injuries/Pain Location: head Loss of Consciousness: no loss of consciousness Quality: aching Severity of Pain-Max: mild Severity of Pain-Current: mild Associated Symptoms (Fall): denies symptoms Allergies/Adverse Reactions: No Known Drug Allergies Allergy (Verified 08/30/19 17:40) Home Medications: Amlodipine Besylate/Benazepril [Amlodipine-Benazepril 10-40 mg] 1 each PO DAILY 03/03/18 [History] Apixaban [Eliquis 5 mg Tablet] 5 mg PO BID 03/03/18 [History] Metformin HCl 500 mg [Glucophage 500 MG] 500 mg PO DAILY 03/03/18 [History ] Acetaminophen [Tylenol Arthritis] 650 mg PO BID PRN PRN 08/30/19 [History] Atorvastatin Calcium 10 mg PO DAILY 08/30/19 [History] Omeprazole 1 cap PO DAILY 08/30/19 [History] Sulfamethoxazole/Trimethoprim [Sulfamethoxazole-Tmp Ds Tablet] 1 tab PO Q12H [History] Hx Tetanus, Diphtheria Vaccination/Date Given: No Hx Influenza Vaccination/Date Given: No Hx Pneumococcal Vaccination/Date Given: Yes Immunizations Up to Date: Yes - Review of Systems Constitutional: Weakness Eyes: No Symptoms Ears, Nose, & Throat: No Symptoms Respiratory: No Symptoms Cardiac: Palpitations Abdominal/Gastrointestinal: No Symptoms Genitourinary Symptoms: No Symptoms Musculoskeletal: No Symptoms Skin: No Symptoms Neurological: No Symptoms Psychological: No Symptoms Endocrine: No Symptoms Hematologic/Lymphatic: No Symptoms Immunological/Allergic: No Symptoms All Other Systems: Reviewed and Negative - Past Medical History Pertinent Past Medical History: Yes Neurological History: No Pertinent History ENT History: No Pertinent History Cardiac History: Arrhythmia, Hypertension, Other Respiratory History: No Pertinent History Endocrine Medical History: Diabetes Type II Musculoskeletal History: Arthritis GI Medical History: Gallbladder Disease, Other History: Other Psycho-Social History: No Pertinent History Female Reproductive Disorders: No Pertinent History Other Medical History: kidney abcess right - Past Surgical History Past Surgical History: Yes Neuro Surgical History: No Pertinent History Cardiac: No Pertinent History Respiratory: No Pertinent History Gastrointestinal: Cholecystectomy, Hernia Repair Genitourinary: Other Musculoskeletal: No Pertinent History Female Surgical History: No Pertinent History Other Surgical History: kidney had J.P. drain placed - Social History Smoking Status: Never smoker Exposure to second hand smoke: Yes Drug Use: none Patient Lives Alone: No - Nursing Vital Signs Nursing Vital Signs: Initial Vital Signs Temperature 98.5 F 01/03/20 12:30 Pulse Rate 72 01/03/20 12:30 Respiratory Rate 18 01/03/20 12:30 Blood Pressure 137/70 01/03/20 12:30 O2 Sat by Pulse Oximetry 95 01/03/20 12:30 Pain Scale Pain Intensity 2 - John Coma Score Best Eye Response ([place]): (4) open spontaneously Best Verbal Response (John): (5) oriented Best Motor Response (John): (6) obeys commands John Total: 15 - Physical Exam General Appearance: no apparent distress, alert, obese Head Injury: ecchymosis (Small above left eyebrow) Eye Exam: PERRL/EOMI, eyes nml inspection ENT Exam: airway nml, nml ext.inspection Neck Exam: supple, trachea midline, full range of motion, normal alignment, normal inspection Respiratory/Chest Exam: normal breath sounds, No chest tenderness, No respiratory distress, No ecchymosis, No crepitus Cardiovascular Exam: irregular Gastrointestinal Exam: soft, normal bowel sounds, No tenderness Rectal Exam: not done Back Exam: normal inspection, normal range of motion, No CVA tenderness, No vertebral tenderness Extremity Exam: normal inspection, normal range of motion Neurologic Exam: alert, oriented x 3, 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, 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, normal mood/affect Skin Exam: normal color, warm, dry SpO2 Interpretation: borderline oxygenation SpO2: 95 O2 Delivery: Room Air Ordered Tests: Active Orders 24 hr Category Date Time Status EKG-ER Only STAT Care 01/03/20 12:56 Active IV Insertion STAT Care 01/03/20 12:54 Active CHEST 1 VIEW (PORTABLE) Stat Exams 01/03/20 12:55 Completed HEAD WITHOUT CONTRAST [CT] Stat Exams 01/03/20 12:55 Completed CBC W DIFF Stat Lab 01/03/20 13:00 Completed CMP Stat Lab 01/03/20 13:00 Completed TROPONIN Q3H Lab 01/03/20 13:00 Completed TROPONIN Q3H Lab 01/03/20 16:00 Ordered TROPONIN Q3H Lab 01/03/20 19:00 Ordered TROPONIN Q3H Lab 01/03/20 22:00 Ordered UA W/RFX UR CULTURE Stat Lab 01/03/20 13:21 Completed Medication Summary Discontinued Medications Generic Name Dose Route Start Last Admin Trade Name Freq PRN Reason Stop Dose Admin Sodium Chloride 1,000 mls @ 999 mls/hr 01/03/20 12:54 01/03/20 14:11 Sodium Chloride 0.9% 1000 Ml IV 01/03/20 13:54 Infused .Q1H1M STA Infusion Sodium Chloride Confirm 01/03/20 13:07 Sodium Chloride 0.9% 1000 Ml Administered 01/03/20 13:08 Dose 1,000 mls @ ud .ROUTE .K-MED ONE Lab/Rad Data: Laboratory Result Diagrams 01/03/20 13:00 01/03/20 13:00 Laboratory Results 01/03/20 01/03/20 01/03/20 Range/Units 13:21 13:00 13:00 WBC (4.0-10.5) K/mm3 RBC (4.1-5.4) M/mm3 Hgb (12.0-16.0) gm/dl Hct (35-47) % MCV (78-100) fl MCH (26-32) pg MCHC (32-36) g/dl RDW (11.5-14.0) % Plt Count (150-450) K/mm3 MPV (7.5-11.0) fl Gran % (36.0-66.0) % Eos # (Auto) (0-0.5) Absolute Lymphs (auto) (1.0-4.6) Absolute Monos (auto) (0.0-1.3) Lymphocytes % (24.0-44.0) % Monocytes % (0.0-12.0) % Eosinophils % (0.00-5.0) % Basophils % (0.0-0.4) % Absolute Granulocytes (1.4-6.9) Basophils # (0-0.4) Sodium 140 (137-145) mmol/L Potassium 3.6 (3.5-5.1) mmol/L Chloride 102 (98-107) mmol/L Carbon Dioxide 34 H (22-30) mmol/L Anion Gap 8.2 (5-15) MEQ/L BUN 17 (7-17) mg/dL Creatinine 0.67 (0.52-1.04) mg/dL Estimated GFR > 60.0 ML/MIN Glucose 92 (74-106) mg/dL Calcium 7.9 L (8.4-10.2) mg/dL Total Bilirubin 0.50 (0.2-1.3) mg/dL AST 24 (14-36) U/L ALT 12 (0-35) U/L Alkaline Phosphatase 188 H (38-126) U/L Troponin I < 0.012 (0.000-0.034) ng/mL Serum Total Protein 6.4 (6.3-8.2) g/dL Albumin 3.2 L (3.5-5.0) g/dL Urine Color YELLOW (YELLOW) Urine Appearance CLEAR (CLEAR) Urine pH 5.0 (5-6) Ur Specific [place] 1.017 (1.005-1.025) Urine Protein 30 (Negative) Urine Ketones NEGATIVE (NEGATIVE) Urine Blood NEGATIVE (0-5) Umberto/ul Urine Nitrite NEGATIVE (NEGATIVE) Urine Bilirubin NEGATIVE (NEGATIVE) Urine Urobilinogen 4 (0-1) mg/dL Ur Leukocyte Esterase NEGATIVE (NEGATIVE) Urine WBC (Auto) 0-2 (0-5) /HPF Urine RBC (Auto) NONE (0-2) /HPF U Epithel Cells (Auto) RARE (FEW) /HPF Urine Bacteria (Auto) NONE (NEGATIVE) /HPF Urine Mucus (Auto) SLIGHT (NEGATIVE) /HPF Urine Culture Reflexed NO (NO) Urine Glucose NEGATIVE (NEGATIVE) mg/dL Slides for Path Review 01/03/20 Range/Units 13:00 WBC 6.6 (4.0-10.5) K/mm3 RBC 3.74 L (4.1-5.4) M/mm3 Hgb 8.8 L (12.0-16.0) gm/dl Hct 30.7 L (35-47) % MCV 82.1 (78-100) fl MCH 23.5 L (26-32) pg MCHC 28.7 L (32-36) g/dl RDW 18.0 H (11.5-14.0) % Plt Count 223 (150-450) K/mm3 MPV 10.0 (7.5-11.0) fl Gran % 81.0 H (36.0-66.0) % Eos # (Auto) 0.12 (0-0.5) Absolute Lymphs (auto) 0.76 L (1.0-4.6) Absolute Monos (auto) 0.36 (0.0-1.3) Lymphocytes % 11.5 L (24.0-44.0) % Monocytes % 5.5 (0.0-12.0) % Eosinophils % 1.8 (0.00-5.0) % Basophils % 0.2 (0.0-0.4) % Absolute Granulocytes 5.34 (1.4-6.9) Basophils # 0.01 (0-0.4) Sodium (137-145) mmol/L Potassium (3.5-5.1) mmol/L Chloride (98-107) mmol/L Carbon Dioxide (22-30) mmol/L Anion Gap (5-15) MEQ/L BUN (7-17) mg/dL Creatinine (0.52-1.04) mg/dL Estimated GFR ML/MIN Glucose (74-106) mg/dL Calcium (8.4-10.2) mg/dL Total Bilirubin (0.2-1.3) mg/dL AST (14-36) U/L ALT (0-35) U/L Alkaline Phosphatase (38-126) U/L Troponin I (0.000-0.034) ng/mL Serum Total Protein (6.3-8.2) g/dL Albumin (3.5-5.0) g/dL Urine Color (YELLOW) Urine Appearance (CLEAR) Urine pH (5-6) Ur Specific [place] (1.005-1.025) Urine Protein (Negative) Urine Ketones (NEGATIVE) Urine Blood (0-5) Umberto/ul Urine Nitrite (NEGATIVE) Urine Bilirubin (NEGATIVE) Urine Urobilinogen (0-1) mg/dL Ur Leukocyte Esterase (NEGATIVE) Urine WBC (Auto) (0-5) /HPF Urine RBC (Auto) (0-2) /HPF U Epithel Cells (Auto) (FEW) /HPF Urine Bacteria (Auto) (NEGATIVE) /HPF Urine Mucus (Auto) (NEGATIVE) /HPF Urine Culture Reflexed (NO) Urine Glucose (NEGATIVE) mg/dL Slides for Path Review - Progress Progress: unchanged, improved Progress Note: 01/03/20 15:25 The CAT scan of the head reveals no acute intracranial abnormality. The chest x -ray reveals no evidence of any acute process. I spoke with Dr. Doyle, the patient's primary care physician. I reviewed the patient's history, condition, laboratory work-up and x-ray results. Dr. Smith states that the patient can be admitted for observation or be just charged to home. The patient can decide. We spoke to the patient and informed them of the risk and benefits of not being admitted for observation. The patient has decided to, and desires to be discharged to home. She was informed to give Dr. Piedra office a call on Monday to make arrangements for follow-up appointment. Discussed with : Jeffrey Counseled pt/family regarding: lab results, diagnosis, need for follow-up, rad results - Departure Departure Disposition: Home Clinical Impression: Anemia, Weakness, Fall Condition: Stable Critical Care Time: No Referrals: JUANITA SMITH MD [Primary Care Provider] - Additional Instructions: Continue your medication as prescribed. Follow-up with Dr. Piedra office on Monday to call and make an appointment for follow-up appointment.
--- NOTE | 2020-01-03 14:12 | XRAY ---
Exam: AP portable chest film from 01/03/2020. Comparison: AP upright portable chest film from 09/03/2019. Indication: Shortness of air. Findings: The film was obtained in a lordotic projection. Inspiratory effort is less than average. The transverse heart size appears borderline enlarged. A calcified, mildly tortuous aortic arch is seen. Minimal curvilinear stranding within the right midlung field and some linear stranding within the left midlung field are seen suggestive of plate atelectasis. No air space infiltrates, vascular congestion, pneumothorax, or pleural fluid is seen. EKG leads are seen in place. Some degenerative changes are seen within both shoulders. Impression: 1. Lung volumes are relatively low which may explain minimal curvilinear/linear plate atelectasis within both midlung zones. 2. The heart size is borderline enlarged. No other acute cardiopulmonary disease is seen.
--- NOTE | 2020-01-03 14:17 | XRAY ---
Exam: CT of the head without IV contrast from 01/03/2020. CTDI: 53.92 mGy. Comparison: None. Indication: Fall, contusion over left eye. Technique: Non-IV contrast axial images were obtained through the brain. Reconstructed coronal and sagittal images were created and reviewed. Findings: The ventricles appear within normal limits of size. No focal mass effect or midline shift is seen. No acute intracranial bleed or abnormal extra-axial fluid collection is seen. No low attenuation territorial infarct is seen. The cortical sulci and basilar cisterns appear unremarkable. CT artifact from dental amalgam is seen. The calvarium of the skull reveals no fracture. The visualized paranasal sinuses are clear without air-fluid levels. The mastoid air cells reveal no effusion. The orbits reveal no gross abnormality. Impression: 1. No acute intracranial bleed or other acute intracranial process is seen. 2. The calvarium of the skull appears intact without evidence of fracture.
[2020-01-03] MEDS ORDERED: HUMALOG SQ PRN (19:15)
[2020-01-03] MEDS ORDERED: Zofran 4 MG/2 ML VIAL IV PRN (19:15)
[2020-01-03] MEDS: Sodium Chloride 0.9% 1000 ML 1,000 ML IV SCH (19:58)
[2020-01-03] MEDS: ELIQUIS 2.5 MG TABLET PO SCH (22:19)
[2020-01-03] MEDS: Zocor 10MG PO SCH (22:19)
[2020-01-03] MEDS: Lotensin 10 MG PO SCH (22:19)
[2020-01-03] MEDS: Glucophage 500 MG PO SCH (22:19)
[2020-01-03] MEDS: NORVASC 5 MG PO SCH (22:20)
[2020-01-04] MEDS: TYLENOL 325 MG PO PRN (03:32)
[2020-01-04 04:52] LABS: Absolute Neutrophil Ct (ANC) 3.13 (1.4-6.9); Basophil (Absolute #) 0 (0-0.4); Eosinophil % 2.4 % (0.00-5.0); Hematocrit 27.9 % (35-47); Hemoglobin 7.7 gm/dl (12.0-16.0); Lymphocyte (Absolute #) 0.75 (1.0-4.6); Lymphocytes % 17.6 % (24.0-44.0); Mean Cell Volume 83.8 fl (78-100); Mean Corpuscular Hemoglobin 23.1 pg (26-32); Mean Corpuscular Hgb Concent. 27.6 g/dl (32-36); Mean Platelet Volume 10.1 fl (7.5-11.0); Monocyte (Absolute #) 0.27 (0.0-1.3); Monocytes % 6.4 % (0.0-12.0); Neutrophil % 73.6 % (36.0-66.0); Platelet Count 199 K/mm3 (150-450); Red Blood Count 3.33 M/mm3 (4.1-5.4); Red Cell Distribution Width 17.8 % (11.5-14.0); White Blood Count 4.3 K/mm3 (4.0-10.5)
[2020-01-04 05:25] LABS: ANION GAP 6.9 MEQ/L (5-15); BLOOD UREA NITROGEN 16 mg/dL (7-17); CHLORIDE 102 mmol/L (98-107); Calcium 7.6 mg/dL (8.4-10.2); Carbon Dioxide 35 mmol/L (22-30); Creatinine 1 0.72 mg/dL (0.52-1.04); Glucose 92 mg/dL (74-106); Potassium 3.6 mmol/L (3.5-5.1); SODIUM 140 mmol/L (137-145)
[2020-01-04 06:00] LABS: Folate (Folic Acid) 4.93 ng/mL (2.76 - >20)
[2020-01-04] MEDS: Protonix 40MG Tablet PO SCH (09:22)
[2020-01-04] MEDS: ELIQUIS 2.5 MG TABLET PO SCH ×2 (09:22→23:08)
--- NOTE | 2020-01-04 13:13 | PCM.NOTE ---
Date and Time: 01/04/20 1305 Subjective Assessment: Patient has chronic anemia states since childhood. Is unaware of the cause and has not been on B12 injections that she knows. She has had anemia requiring blood transfusion 08/31/19. States she was started on Eliquis approx 2 years ago for Afib from an [employer] in [facility] but did not have any follow up. C/O shortness of breath while in bed today,is on O2 from ER but not at home. Denies black or red or maroon stools. Objective Exam Neurologic Exam: alert, oriented x 3, cooperative, normal mood/affect, nml cerebellar function Skin Exam: warm, dry, pale Wound Assessment: Skin/Wound Assessment Wound/Incision Assessment Start: 01/03/20 21: 12 Text: Status: Active Freq: Q6H Protocol: Document 01/04/20 08:00 BB (Rec: 01/04/20 08:17 BB [id number]) Wound/Incision Assessment Right Buttock Wound Assessment Shift Assessment Wound Type Pressure Ulcer Dressing Status Dry & Intact Drainage Amount None Comment Wound Size 4cm Length Depth 4cm Mepilex 4X4 [address] for wound protection Left Lower Buttock Wound Assessment Shift Assessment Wound Type Pressure Ulcer Drainage Amount None Comment Wound Size 5cm Length Depth 4cm & 2cm Mepilex 4X[address] for wound protection Left Heel Wound Assessment Shift Assessment Wound Type Pressure Ulcer Drainage Amount Minimal Drainage Description Serosanguineous Drainage Odor None/Absent Primary Dressing Gauze Roll/Wrap Comment Wound Size 4cm length Depth 3cm & 2cm Telfa Pad 2X3 wrapped with Gauze Fluff Roll Foot Elevated to relieve Pressure off the wound Wound Photo Photo Taken Yes Date: 01/04/20 Comment: Pictures in pts chart Respiratory Exam: diminished breath sounds (bases,no ronchi or rales or wheeze) Cardiovascular Exam: irregular (rate 60), edema Gastrointestinal/Abdomen Exam: soft, normal bowel sounds (nonteender), hernia ( ventral soft nontender) Extremity Exam: other (pretibial edema bilat) OBJECTIVE DATA Vital Signs: Vital Signs - 24 hr Temp Pulse Resp BP Pulse Ox 01/04/20 11:58 99.1 F 56 L 22 119/52 89 L 01/04/20 07:57 92 L 01/04/20 07:45 97.5 F 76 22 105/57 90 L 01/04/20 04:00 97.7 F 69 24 97/51 91 L 01/03/20 23:59 97.2 F 58 L 24 111/68 94 L 01/03/20 20:30 97.3 F 77 20 113/51 92 L 01/03/20 19:14 97.3 F 77 20 113/51 92 L 01/03/20 16:12 59 L 22 141/64 92 L 01/03/20 15:28 95 01/03/20 15:09 70 26 H 131/68 93 L 01/03/20 14:02 77 24 119/79 94 L Pain Assessment - Last Documented Pain Intensity 0 Pain Scale Used 0-10 Pain Scale Intake and Output: Intake & Output 01/02/20 01/03/20 01/04/20 01/05/20 11:59 11:59 11:59 11:59 Intake Total 1227 Output Total 650 Balance 577 Weight 160.8 kg Lab Results: Accuchecks Date 01/04/20 Date 01/03/20 Time 07:30 Time 22:00 Accucheck Value: 100 Accucheck Value: 92 Accucheck Value: 167 Lab Results-Last 24 Hours 01/03/20 01/03/20 01/03/20 Range/Units 13:00 13:00 13:00 WBC 6.6 (4.0-10.5) K/mm3 RBC 3.74 L (4.1-5.4) M/mm3 Hgb 8.8 L (12.0-16.0) gm/dl Hct 30.7 L (35-47) % MCV 82.1 (78-100) fl MCH 23.5 L (26-32) pg MCHC 28.7 L (32-36) g/dl RDW 18.0 H (11.5-14.0) % Plt Count 223 (150-450) K/mm3 MPV 10.0 (7.5-11.0) fl Gran % 81.0 H (36.0-66.0) % Eos # (Auto) 0.12 (0-0.5) Absolute Lymphs (auto) 0.76 L (1.0-4.6) Absolute Monos (auto) 0.36 (0.0-1.3) Lymphocytes % 11.5 L (24.0-44.0) % Monocytes % 5.5 (0.0-12.0) % Eosinophils % 1.8 (0.00-5.0) % Basophils % 0.2 (0.0-0.4) % Absolute Granulocytes 5.34 (1.4-6.9) Basophils # 0.01 (0-0.4) Sodium 140 (137-145) mmol/L Potassium 3.6 (3.5-5.1) mmol/L Chloride 102 (98-107) mmol/L Carbon Dioxide 34 H (22-30) mmol/L Anion Gap 8.2 (5-15) MEQ/L BUN 17 (7-17) mg/dL Creatinine 0.67 (0.52-1.04) mg/dL Estimated GFR > 60.0 ML/MIN Glucose 92 (74-106) mg/dL Hemoglobin A1c (4.5-6.0) % Calcium 7.9 L (8.4-10.2) mg/dL Total Bilirubin 0.50 (0.2-1.3) mg/dL AST 24 (14-36) U/L ALT 12 (0-35) U/L Alkaline Phosphatase 188 H (38-126) U/L Troponin I < 0.012 (0.000-0.034) ng/mL Serum Total Protein 6.4 (6.3-8.2) g/dL Albumin 3.2 L (3.5-5.0) g/dL Vitamin B12 (239-931) pg/mL Folic Acid (2.76 - >20) ng/mL TSH 3rd Generation (0.47-4.68) mIU/L Urine Color (YELLOW) Urine Appearance (CLEAR) Urine pH (5-6) Ur Specific [place] (1.005-1.025) Urine Protein (Negative) Urine Ketones (NEGATIVE) Urine Blood (0-5) Umberto/ul Urine Nitrite (NEGATIVE) Urine Bilirubin (NEGATIVE) Urine Urobilinogen (0-1) mg/dL Ur Leukocyte Esterase (NEGATIVE) Urine WBC (Auto) (0-5) /HPF Urine RBC (Auto) (0-2) /HPF U Epithel Cells (Auto) (FEW) /HPF Urine Bacteria (Auto) (NEGATIVE) /HPF Urine Mucus (Auto) (NEGATIVE) /HPF Urine Culture Reflexed (NO) Urine Glucose (NEGATIVE) mg/dL Slides for Path Review 01/03/20 01/04/20 01/04/20 Range/Units 13:21 04:45 04:45 WBC 4.3 (4.0-10.5) K/mm3 RBC 3.33 L (4.1-5.4) M/mm3 Hgb 7.7 L (12.0-16.0) gm/dl Hct 27.9 L (35-47) % MCV 83.8 (78-100) fl MCH 23.1 L (26-32) pg MCHC 27.6 L (32-36) g/dl RDW 17.8 H (11.5-14.0) % Plt Count 199 (150-450) K/mm3 MPV 10.1 (7.5-11.0) fl Gran % 73.6 H (36.0-66.0) % Eos # (Auto) 0.10 (0-0.5) Absolute Lymphs (auto) 0.75 L (1.0-4.6) Absolute Monos (auto) 0.27 (0.0-1.3) Lymphocytes % 17.6 L (24.0-44.0) % Monocytes % 6.4 (0.0-12.0) % Eosinophils % 2.4 (0.00-5.0) % Basophils % 0.0 (0.0-0.4) % Absolute Granulocytes 3.13 (1.4-6.9) Basophils # 0 (0-0.4) Sodium 140 (137-145) mmol/L Potassium 3.6 (3.5-5.1) mmol/L Chloride 102 (98-107) mmol/L Carbon Dioxide 35 H (22-30) mmol/L Anion Gap 6.9 (5-15) MEQ/L BUN 16 (7-17) mg/dL Creatinine 0.72 (0.52-1.04) mg/dL Estimated GFR > 60.0 ML/MIN Glucose 92 (74-106) mg/dL Hemoglobin A1c (4.5-6.0) % Calcium 7.6 L (8.4-10.2) mg/dL Total Bilirubin (0.2-1.3) mg/dL AST (14-36) U/L ALT (0-35) U/L Alkaline Phosphatase (38-126) U/L Troponin I (0.000-0.034) ng/mL Serum Total Protein (6.3-8.2) g/dL Albumin (3.5-5.0) g/dL Vitamin B12 (239-931) pg/mL Folic Acid (2.76 - >20) ng/mL TSH 3rd Generation 5.650 H (0.47-4.68) mIU/L Urine Color YELLOW (YELLOW) Urine Appearance CLEAR (CLEAR) Urine pH 5.0 (5-6) Ur Specific [place] 1.017 (1.005-1.025) Urine Protein 30 (Negative) Urine Ketones NEGATIVE (NEGATIVE) Urine Blood NEGATIVE (0-5) Umberto/ul Urine Nitrite NEGATIVE (NEGATIVE) Urine Bilirubin NEGATIVE (NEGATIVE) Urine Urobilinogen 4 (0-1) mg/dL Ur Leukocyte Esterase NEGATIVE (NEGATIVE) Urine WBC (Auto) 0-2 (0-5) /HPF Urine RBC (Auto) NONE (0-2) /HPF U Epithel Cells (Auto) RARE (FEW) /HPF Urine Bacteria (Auto) NONE (NEGATIVE) /HPF Urine Mucus (Auto) SLIGHT (NEGATIVE) /HPF Urine Culture Reflexed NO (NO) Urine Glucose NEGATIVE (NEGATIVE) mg/dL Slides for Path Review 01/04/20 01/04/20 Range/Units 04:45 04:45 WBC (4.0-10.5) K/mm3 RBC (4.1-5.4) M/mm3 Hgb (12.0-16.0) gm/dl Hct (35-47) % MCV (78-100) fl MCH (26-32) pg MCHC (32-36) g/dl RDW (11.5-14.0) % Plt Count (150-450) K/mm3 MPV (7.5-11.0) fl Gran % (36.0-66.0) % Eos # (Auto) (0-0.5) Absolute Lymphs (auto) (1.0-4.6) Absolute Monos (auto) (0.0-1.3) Lymphocytes % (24.0-44.0) % Monocytes % (0.0-12.0) % Eosinophils % (0.00-5.0) % Basophils % (0.0-0.4) % Absolute Granulocytes (1.4-6.9) Basophils # (0-0.4) Sodium (137-145) mmol/L Potassium (3.5-5.1) mmol/L Chloride (98-107) mmol/L Carbon Dioxide (22-30) mmol/L Anion Gap (5-15) MEQ/L BUN (7-17) mg/dL Creatinine (0.52-1.04) mg/dL Estimated GFR ML/MIN Glucose (74-106) mg/dL Hemoglobin A1c 5.64 (4.5-6.0) % Calcium (8.4-10.2) mg/dL Total Bilirubin (0.2-1.3) mg/dL AST (14-36) U/L ALT (0-35) U/L Alkaline Phosphatase (38-126) U/L Troponin I (0.000-0.034) ng/mL Serum Total Protein (6.3-8.2) g/dL Albumin (3.5-5.0) g/dL Vitamin B12 318 (239-931) pg/mL Folic Acid 4.93 (2.76 - >20) ng/mL TSH 3rd Generation (0.47-4.68) mIU/L Urine Color (YELLOW) Urine Appearance (CLEAR) Urine pH (5-6) Ur Specific [place] (1.005-1.025) Urine Protein (Negative) Urine Ketones (NEGATIVE) Urine Blood (0-5) Umberto/ul Urine Nitrite (NEGATIVE) Urine Bilirubin (NEGATIVE) Urine Urobilinogen (0-1) mg/dL Ur Leukocyte Esterase (NEGATIVE) Urine WBC (Auto) (0-5) /HPF Urine RBC (Auto) (0-2) /HPF U Epithel Cells (Auto) (FEW) /HPF Urine Bacteria (Auto) (NEGATIVE) /HPF Urine Mucus (Auto) (NEGATIVE) /HPF Urine Culture Reflexed (NO) Urine Glucose (NEGATIVE) mg/dL Slides for Path Review Radiology Exams: Radiology Procedures Category Date Time Status CHEST 1 VIEW (PORTABLE) Stat Exams 01/03/20 12:55 Completed HEAD WITHOUT CONTRAST [CT] Stat Exams 01/03/20 12:55 Completed Assessment/Plan (1) Anemia due to blood loss, chronic Current Visit: Yes Status: Acute Assessment & Plan: Hgb=7.7 this morning .patient agrees to transfuse 2units PRBC Code(s): D50.0 - IRON DEFICIENCY ANEMIA SECONDARY TO BLOOD LOSS (CHRONIC) (2) Chronic anemia Current Visit: Yes Status: Acute Code(s): D64.9 - ANEMIA, UNSPECIFIED (3) Fall at home Current Visit: Yes Status: Acute Assessment & Plan: fall due to generalized weakness Code(s): W19.XXXA - UNSPECIFIED FALL, INITIAL ENCOUNTER; Y[facility].009 [facility] [place] [facility] (PR[facility] (4) Hypothyroidism determined by thyroid function test Current Visit: Yes Status: Acute Assessment & Plan: start Levothyroxine low dose and gradually increase per follow up labs Code(s): E03.9 - HYPOTHYROIDISM, UNSPECIFIED; R94.6 - ABNORMAL RESULTS OF THYROID FUNCTION STUDIES (5) Chronic a-fib Current Visit: Yes Status: Acute Code(s): I48.20 - CHRONIC ATRIAL FIBRILLATION, UNSPECIFIED (6) Anticoagulant long-term use Current Visit: Yes Status: Acute Code(s): Z79.01 - LONG-TERM (CURRENT) USE OF ANTICOAGULANTS
[2020-01-04] MEDS: SYNTHROID 25 MCG PO SCH (14:28)
[2020-01-04 15:58] LABS: Folate (Folic Acid) 5.26 ng/mL (2.76 - >20)
[2020-01-04] MEDS: Sodium Chloride 0.9% 1000 ML 1,000 ML IV SCH (16:05)
[2020-01-04 16:26] LABS: ABO TYPING O; Antibody Screen NEGATIVE (NEGATIVE); RH TYPING POSITIVE
[2020-01-04 16:29] LABS: CROSS MATCH (PRBC) COMPATIBLE (COMPATIBLE)
[2020-01-04] MEDS: Sodium Chloride 0.9% 500 ML 500 ML IV SCH (18:15)
[2020-01-04] MEDS ORDERED: Lasix 20 MG/2 ML IV PRN (22:15)
[2020-01-04] MEDS ORDERED: K-LYTE 25 MEQ PO SCH (23:00)
[2020-01-04] MEDS: Tums EX 750 MG PO SCH (23:03)
[2020-01-04] MEDS: Glucophage 500 MG PO SCH (23:08)
[2020-01-04] MEDS: Lotensin 10 MG PO SCH (23:09)
[2020-01-04] MEDS: NORVASC 5 MG PO SCH (23:10)
[2020-01-04] MEDS: Zocor 10MG PO SCH (23:10)
[2020-01-04] MEDS: LOTRIMIN CREAM 30 GM TP SCH (23:53)
[2020-01-05] MEDS: TYLENOL 325 MG PO PRN (00:44)
[2020-01-05 05:07] LABS: Hematocrit 32.3 % (35-47); Hemoglobin 9.1 gm/dl (12.0-16.0)
[2020-01-05 05:18] LABS: ALBUMIN 2.9 g/dL (3.5-5.0); ALKALINE PHOSPHATASE 164 U/L (38-126); ANION GAP 5.9 MEQ/L (5-15); BLOOD UREA NITROGEN 21 mg/dL (7-17); CHLORIDE 103 mmol/L (98-107); Calcium 7.5 mg/dL (8.4-10.2); Carbon Dioxide 36 mmol/L (22-30); Creatinine 1 0.89 mg/dL (0.52-1.04); Glucose 100 mg/dL (74-106); Potassium 4.1 mmol/L (3.5-5.1); SGOT/AST 24 U/L (14-36); SGPT/ALT 12 U/L (0-35); SODIUM 141 mmol/L (137-145); Total Protein 5.9 g/dL (6.3-8.2)
[2020-01-05] MEDS: ELIQUIS 2.5 MG TABLET PO SCH ×2 (09:51→22:50)
[2020-01-05] MEDS: SYNTHROID 25 MCG PO SCH (09:52)
[2020-01-05] MEDS: Tums EX 750 MG PO SCH (09:52)
[2020-01-05] MEDS: LOTRIMIN CREAM 30 GM TP SCH ×2 (09:52→22:50)
[2020-01-05] MEDS: Protonix 40MG Tablet PO SCH (09:52)
--- NOTE | 2020-01-05 10:00 | PCM.NOTE ---
Date and Time: 01/05/20956 Subjective Assessment: Patient received 2 units PRBC overnight .Staff says she had a restless night .She received Lasix 20 mg between units of PRBCs but is fluid overloaded and dyspnic and somnulent this morning.pipe organ technician has been adjusting her O2 and applied bipap after ABG. She resopned to IV Lasix ,receiving 40 mg IV x 3 over the course of the day and evening. She woke up alert and oriented and was hungry . Objective Exam General Appearance: lethargy (resolved by evening after diuresis.) Skin Exam: normal color (since transfusion), warm, dry Wound Assessment: Skin/Wound Assessment Wound/Incision Assessment Start: 01/03/20 21: 12 Text: Status: Active Freq: Q6H Protocol: Document 01/05/20 02:00 MG (Rec: 01/05/20 05:10 MG [id number]) Wound/Incision Assessment Right Buttock Wound Assessment Shift Assessment Wound Type Pressure Ulcer Dressing Status Dry & Intact Drainage Amount None Comment 4cm x 4cm Stage II, Mepilex 4X[address] for wound protection Left Lower Buttock Wound Assessment Shift Assessment Wound Type Pressure Ulcer Drainage Amount None Comment 5 cm x 4 cm stage II. Mepilex 4X[address] for wound protection Left Heel Wound Assessment Shift Assessment Wound Type Pressure Ulcer Drainage Amount Minimal Drainage Description Serosanguineous Drainage Odor None/Absent Primary Dressing Telfa Secondary Dressing Gauze Roll/Wrap Comment 4 cm x 3 cm Stage II. Dressing intact, small amount of serous drainage noted on heel. Legs elevated on foam wedge and pillow to float heels. No change noted. Respiratory Exam: respiratory distress (resolved after diuresisng over the course of the day/evening), crackles/rales (bases) Cardiovascular Exam: bradycardia (regular ,patient is sleeping) Gastrointestinal/Abdomen Exam: soft (nontender) Extremity Exam: other (bilateral LE ,chronicedema) OBJECTIVE DATA Vital Signs: Vital Signs - 24 hr Temp Pulse Resp BP Pulse Ox 01/05/20 08:02 93 L 01/05/20 08:00 97.8 F 73 20 113/50 94 L 01/05/20 04:00 98.0 F 69 26 H 115/53 97 01/05/20 00:00 98.2 F 75 24 115/53 94 L 01/04/20 20:39 92 L 02/29/20 20:00 98.0 F 75 22 121/56 93 L 01/04/20 16:00 98.3 F 21 86/45 88 L 01/04/20 11:58 99.1 F 56 L 22 119/52 89 L Oxygen-Last 24 hours Oxygen Flowrate (L/min)-RT 9 Oxygen Flowrate (L/min)-RT 9 Pain Assessment - Last Documented Pain Intensity 5 Pain Scale Used 0-10 Pain Scale Intake and Output: Intake & Output 01/02/20 01/03/20 01/04/20 01/05/20 11:59 11:59 11:59 11:59 Intake Total 1227 2960 Output Total 650 800 Balance 577 2160 Weight 160.8 kg 162.6 kg Lab Results: Accuchecks Date 01/05/20 Time 07:39 Accucheck Value: 118 Accucheck Value: 142 Accucheck Value: 100 Lab Results-Last 24 Hours 01/04/20 01/04/20 01/04/20 Range/Units 14:12 14:12 14:12 Hgb (12.0-16.0) gm/dl Hct (35-47) % Sodium (137-145) mmol/L Potassium (3.5-5.1) mmol/L Chloride (98-107) mmol/L Carbon Dioxide (22-30) mmol/L Anion Gap (5-15) MEQ/L BUN (7-17) mg/dL Creatinine (0.52-1.04) mg/dL Estimated GFR ML/MIN Glucose (74-106) mg/dL Calcium (8.4-10.2) mg/dL Total Bilirubin (0.2-1.3) mg/dL AST (14-36) U/L ALT (0-35) U/L Alkaline Phosphatase (38-126) U/L NT-Pro-B Natriuret Pep 1330 H (0-900) pg/mL Serum Total Protein (6.3-8.2) g/dL Albumin (3.5-5.0) g/dL Vitamin B12 319 (239-931) pg/mL Folic Acid 5.26 (2.76 - >20) ng/mL ABO Group O Rh Factor POSITIVE Antibody Screen NEGATIVE (NEGATIVE) Crossmatch COMPATIBLE COMPATIBLE (COMPATIBLE) 01/05/20 01/05/20 Range/Units 05:03 05:03 Hgb 9.1 L (12.0-16.0) gm/dl Hct 32.3 L (35-47) % Sodium 141 (137-145) mmol/L Potassium 4.1 (3.5-5.1) mmol/L Chloride 103 (98-107) mmol/L Carbon Dioxide 36 H (22-30) mmol/L Anion Gap 5.9 (5-15) MEQ/L BUN 21 H (7-17) mg/dL Creatinine 0.89 (0.52-1.04) mg/dL Estimated GFR > 60.0 ML/MIN Glucose 100 (74-106) mg/dL Calcium 7.5 L (8.4-10.2) mg/dL Total Bilirubin 0.40 (0.2-1.3) mg/dL AST 24 (14-36) U/L ALT 12 (0-35) U/L Alkaline Phosphatase 164 H (38-126) U/L NT-Pro-B Natriuret Pep (0-900) pg/mL Serum Total Protein 5.9 L (6.3-8.2) g/dL Albumin 2.9 L (3.5-5.0) g/dL Vitamin B12 (239-931) pg/mL Folic Acid (2.76 - >20) ng/mL ABO Group Rh Factor Antibody Screen (NEGATIVE) Crossmatch (COMPATIBLE) Radiology Exams: Radiology Procedures Category Date Time Status CHEST 1 VIEW (PORTABLE) Stat Exams 01/03/20 12:55 Completed HEAD WITHOUT CONTRAST [CT] Stat Exams 01/03/20 12:55 Completed Assessment/Plan (1) Anemia due to blood loss, chronic Status: Acute Assessment & Plan: improved after 2units PRBC Code(s): D50.0 - IRON DEFICIENCY ANEMIA SECONDARY TO BLOOD LOSS (CHRONIC) (2) Chronic anemia Status: Chronic Code(s): D64.9 - ANEMIA, UNSPECIFIED (3) Fall at home Status: Acute Assessment & Plan: recurrent per Code(s): W19.XXXA - UNSPECIFIED FALL, INITIAL ENCOUNTER; Y92.009 - UNSP PLACE IN UNSP NON-INSTITUT (PRIVATE) RESIDENCE PLACE (4) Hypothyroidism determined by thyroid function test Status: Acute Code(s): E03.9 - HYPOTHYROIDISM, UNSPECIFIED; R94.6 - ABNORMAL RESULTS OF THYROID FUNCTION STUDIES (5) Chronic a-fib Status: Acute Code(s): I48.20 - CHRONIC ATRIAL FIBRILLATION, UNSPECIFIED (6) Anticoagulant long-term use Status: Chronic Code(s): Z79.01 - 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 Code(s): R06.03 - ACUTE RESPIRATORY DISTRESS
[2020-01-05] MEDS ORDERED: Cyanocobalamin B-12 1000 MCG/ML SQ ONE (10:30)
[2020-01-05] MEDS ORDERED: Lasix 40 MG/4 ML IV ONE ×3 (12:13→20:00)
--- NOTE | 2020-01-05 21:14 | XRAY ---
Indication: Cough. Aspiration. Comparison: January 03, 2020. Portable chest remains underinflated with new right base infiltrate/atelectasis/effusion and new tiny left effusion. Stable left midlung subsegmental atelectasis/scarring and cardiomegaly. Comment: Preliminary interpretation was made by [facility]. No critical discrepancy.
[2020-01-05 21:48] LABS: A-aADO2 535; ABG HEMOGLOBIN 9.9; ABG POTASSIUM 4.1 (3.5-5.1); ARTERIAL BLD GAS O2 SATURATION 94.7 % (95-100); ARTERIAL BLOOD GAS BASE EXCESS 8.4 (-2.0-2.0); ARTERIAL BLOOD GAS FIO2 100 %; ARTERIAL BLOOD GAS PO2 69 mmHg (75-100); ARTERIAL BLOOD GAS pH 7.26 (7.35-7.45); HGB O2 SAT 92.8 g/dF (94-100); Methhemoglobin 0.6 % (1.4-1.5); paO2 pAO1 0.11
[2020-01-05 21:49] LABS: ARTERIAL BLOOD GAS PCO2 87 mmHg (35-45); CARBOXYHEMOGLOBIN 1.4 % THgb (0.0-6.9)
[2020-01-05 21:50] LABS: ABG SITE LEFT RADIAL; ALLEN TEST OK? NO
[2020-01-05 21:50] LABS: A-aADO2 104; ABG HEMOGLOBIN 10.2; ABG POTASSIUM 4.2 (3.5-5.1); ARTERIAL BLD GAS O2 SATURATION 98.5 % (95-100); ARTERIAL BLOOD GAS BASE EXCESS 10.4 (-2.0-2.0); ARTERIAL BLOOD GAS FIO2 40 %; ARTERIAL BLOOD GAS PCO2 59 mmHg (35-45); ARTERIAL BLOOD GAS PO2 107 mmHg (75-100); ARTERIAL BLOOD GAS VENT MODE BiPAP; ARTERIAL BLOOD GAS pH 7.41 (7.35-7.45); CARBOXYHEMOGLOBIN 3.1 % THgb (0.0-6.9); HCO3- 37.4 (22-28); HGB O2 SAT 94.5 g/dF (94-100); Methhemoglobin 1.1 % (1.4-1.5); paO2 pAO1 0.51
[2020-01-05 21:51] LABS: Absolute Neutrophil Ct (ANC) 6.47 (1.4-6.9); BASOPHIL % 0.2 % (0.0-0.4); Basophil (Absolute #) 0.02 (0-0.4); Eosinophil % 0.7 % (0.00-5.0); Eosinophil (Absolute #) 0.06 (0-0.5); Hematocrit 34.1 % (35-47); Hemoglobin 9.7 gm/dl (12.0-16.0); Lymphocyte (Absolute #) 1.32 (1.0-4.6); Lymphocytes % 15.7 % (24.0-44.0); Mean Cell Volume 86.5 fl (78-100); Mean Corpuscular Hemoglobin 24.6 pg (26-32); Mean Corpuscular Hgb Concent. 28.4 g/dl (32-36); Mean Platelet Volume 9.3 fl (7.5-11.0); Monocyte (Absolute #) 0.55 (0.0-1.3); Monocytes % 6.5 % (0.0-12.0); Neutrophil % 76.9 % (36.0-66.0); Platelet Count 169 K/mm3 (150-450); Red Blood Count 3.94 M/mm3 (4.1-5.4); Red Cell Distribution Width 17.5 % (11.5-14.0); White Blood Count 8.4 K/mm3 (4.0-10.5)
[2020-01-05 21:51] LABS: ABG SITE LEFT RADIAL; ALLEN TEST OK? NO
[2020-01-05 22:02] LABS: ALBUMIN 2.9 g/dL (3.5-5.0); ALKALINE PHOSPHATASE 148 U/L (38-126); BLOOD UREA NITROGEN 20 mg/dL (7-17); CHLORIDE 102 mmol/L (98-107); Calcium 7.9 mg/dL (8.4-10.2); Carbon Dioxide 37 mmol/L (22-30); Creatinine 1 0.94 mg/dL (0.52-1.04); Glucose 95 mg/dL (74-106); SGOT/AST 23 U/L (14-36); SGPT/ALT 12 U/L (0-35); SODIUM 141 mmol/L (137-145)
[2020-01-05] MEDS: Glucophage 500 MG PO SCH (22:50)
[2020-01-05] MEDS: Zocor 10MG PO SCH (22:50)
[2020-01-05] MEDS: NORVASC 5 MG PO SCH (22:50)
[2020-01-05] MEDS: Lotensin 10 MG PO SCH (22:50)
[2020-01-06] MEDS: Sodium Chloride 0.9% 1000 ML 1,000 ML IV SCH ×2 (00:41→16:18)
[2020-01-06 00:45] LABS: A-aADO2 126; ABG HEMOGLOBIN 9.7; ABG POTASSIUM 4.2 (3.5-5.1); ARTERIAL BLD GAS O2 SATURATION 95.5 % (95-100); ARTERIAL BLOOD GAS BASE EXCESS 10.5 (-2.0-2.0); ARTERIAL BLOOD GAS FIO2 40 %; ARTERIAL BLOOD GAS PO2 68 mmHg (75-100); ARTERIAL BLOOD GAS VENT MODE BiPAP; ARTERIAL BLOOD GAS pH 7.34 (7.35-7.45); CARBOXYHEMOGLOBIN 1.1 % THgb (0.0-6.9); HCO3- 39.4 (22-28); HGB O2 SAT 93.9 g/dF (94-100); Methhemoglobin 0.6 % (1.4-1.5); paO2 pAO1 0.35
[2020-01-06 00:48] LABS: ABG SITE LEFT RADIAL; ALLEN TEST OK? NO; ARTERIAL BLOOD GAS PCO2 73 mmHg (35-45)
[2020-01-06 01:13] LABS: Slide Review 1 YES
[2020-01-06] MEDS: TYLENOL 325 MG PO PRN ×2 (03:37→14:57)
[2020-01-06] MEDS: Sodium Chloride 0.9% 500 ML 500 ML IV SCH ×2 (07:42→07:43)
[2020-01-06] MEDS: ELIQUIS 2.5 MG TABLET PO SCH ×2 (07:56→22:11)
[2020-01-06] MEDS: SYNTHROID 25 MCG PO SCH (07:56)
[2020-01-06] MEDS: LOTRIMIN CREAM 30 GM TP SCH ×2 (07:56→22:14)
[2020-01-06] MEDS: Protonix 40MG Tablet PO SCH (07:56)
[2020-01-06] MEDS: Tums EX 750 MG PO SCH (07:57)
--- NOTE | 2020-01-06 11:56 | PCM.NOTE ---
Date and Time: 01/06/20 1154 Subjective Assessment: doing ok - Review of Systems Constitutional: No Fever, No Chills Eyes: No Symptoms Ears, Nose, & Throat: No Symptoms Respiratory: No Cough, No Short Of Breath Cardiac: No Chest Pain, No Edema, No Syncope Abdominal/Gastrointestinal: No Abdominal Pain, No Nausea, No Vomiting, No Diarrhea Genitourinary Symptoms: No Dysuria Musculoskeletal: No Back Pain, No Neck Pain Skin: No Rash Neurological: No Dizziness, No Focal Weakness, No Sensory Changes Psychological: No Symptoms Endocrine: No Symptoms Hematologic/Lymphatic: No Symptoms Immunological/Allergic: No Symptoms Objective Exam General Appearance: no apparent distress, alert Neurologic Exam: alert, oriented x 3, cooperative, normal mood/affect, nml cerebellar function, sensation nml, No motor deficits Skin Exam: normal color, warm, dry Wound Assessment: Skin/Wound Assessment Wound/Incision Assessment Start: 01/03/20 21: 12 Text: Status: Active Freq: Q6H Protocol: Document 01/06/20 07:35 NEREIDA (Rec: 01/06/20 07:40 [id number]) Wound/Incision Assessment Lower Medial Sacrum Wound Assessment Shift Assessment Wound Type Pressure Ulcer Wound Stage Stage II Length (cm) (cm) 1 Width (cm) (cm) 1 Comment open to air; barrier cream applied. Right Buttock Wound Assessment Shift Assessment Wound Type Pressure Ulcer Wound Stage Stage II Dressing Status Dry & Intact Drainage Amount None Length (cm) (cm) 4 Width (cm) (cm) 4 Comment 4cm x 4cm Stage II, Mepilex 4X[address] for wound protection Left Lower Buttock Wound Assessment Shift Assessment Wound Type Pressure Ulcer Wound Stage Stage II Drainage Amount None Length (cm) (cm) 5 Width (cm) (cm) 4 Comment 5 cm x 4 cm stage II. Mepilex 4X[address] for wound protection Left Heel Wound Assessment Shift Assessment Wound Type Pressure Ulcer Drainage Amount Minimal Drainage Description Serosanguineous Drainage Odor None/Absent Length (cm) (cm) 3 Width (cm) (cm) 1.5 Primary Dressing Telfa Secondary Dressing Gauze Roll/Wrap Comment 3 cm x 1.5 cm Stage II. Dressing CDI. Wound Photo Photo Taken Yes Date: 01/04/20 Comment: Pictures in pts chart Eye Exam: PERRL, EOMI, eyes nml inspection Ears, Nose, Throat Exam: normal ENT inspection, pharynx normal, moist mucous membranes Neck Exam: normal inspection, non-tender, supple, full range of motion Respiratory Exam: normal breath sounds, lungs clear, No respiratory distress Cardiovascular Exam: regular rate/rhythm, normal heart sounds Gastrointestinal/Abdomen Exam: soft, No tenderness, No mass Extremity Exam: normal inspection, normal range of motion Back Exam: normal inspection, normal range of motion, No CVA tenderness, No vertebral tenderness Pelvic Exam: deferred Rectal Exam: deferred OBJECTIVE DATA Vital Signs: Vital Signs - 24 hr Temp Pulse Resp BP Pulse Ox 01/06/20 11:07 91 L 01/06/20 08:00 98.5 F 67 20 105/54 92 L 01/06/20 04:00 99.7 F 58 L 24 116/53 97 01/06/20 00:00 99.8 F 70 14 113/51 94 L 01/05/20 20:03 90 L 01/05/20 20:00 99.1 F 74 22 118/53 95 01/05/20 16:00 99.8 F 66 116/53 93 L 01/05/20 15:24 93 L 01/05/20 12:00 97.5 F 72 20 144/59 82 L Oxygen-Last 24 hours Oxygen Flowrate (L/min)-RT 15 Oxygen Flowrate (L/min)-RT 9 Pain Assessment - Last Documented Pain Intensity 5 Pain Scale Used 0-10 Pain Scale Intake and Output: Intake & Output 01/03/20 01/04/20 01/05/20 01/06/20 11:59 11:59 11:59 11:59 Intake Total 1227 2960 1978 Output Total 232 520 4031 Balance 577 2160 -3072 Weight 160.8 kg 162.6 kg Lab Results: Accuchecks Date 01/06/20 Date 01/05/20 Time 07:35 Time 16:30 Accucheck Value: 104 Accucheck Value: 90 Accucheck Value: 159 Lab Results-Last 24 Hours 01/05/20 01/05/20 01/05/20 Range/Units 20:45 21:47 21:50 WBC 8.4 (4.0-10.5) K/mm3 RBC 3.94 L (4.1-5.4) M/mm3 Hgb 9.7 L (12.0-16.0) gm/dl Hct 34.1 L (35-47) % MCV 86.5 (78-100) fl MCH 24.6 L (26-32) pg MCHC 28.4 L (32-36) g/dl RDW 17.5 H (11.5-14.0) % Plt Count 169 (150-450) K/mm3 MPV 9.3 (7.5-11.0) fl Gran % 76.9 H (36.0-66.0) % Eos # (Auto) 0.06 (0-0.5) Absolute Lymphs (auto) 1.32 (1.0-4.6) Absolute Monos (auto) 0.55 (0.0-1.3) Lymphocytes % 15.7 L (24.0-44.0) % Monocytes % 6.5 (0.0-12.0) % Eosinophils % 0.7 (0.00-5.0) % Basophils % 0.2 (0.0-0.4) % Absolute Granulocytes 6.47 (1.4-6.9) Basophils # 0.02 (0-0.4) Puncture Site LEFT RADIAL LEFT RADIAL pCO2 87 H* 59 H (35-45) mmHg pO2 69 L 107 H (75-100) mmHg Base Excess 8.4 H 10.4 H (-2.0-2.0) O2 Saturation 92.8 L 94.5 (94-100) g/dF ABG pH 7.26 L 7.41 (7.35-7.45) ABG HCO3 39.0 H* 37.4 H* (22-28) ABG O2 Sat (Measured) 94.7 L 98.5 (95-100) % Americo Test NO NO A-a Gradient 535 104 a/A Ratio 0.11 0.51 Hemoglobin 9.9 10.2 Carboxyhemoglobin 1.4 3.1 (0.0-6.9) % THgb Methemoglobin 0.6 L 1.1 L (1.4-1.5) % Potassium 4.1 4.2 (3.5-5.1) Temperature 37.0 37.0 C POC O2 Flow Rate 100 40 % Vent Mode BiPAP Inspiratory BiPAP 14 Expiratory BiPAP 6 Sodium (137-145) mmol/L Chloride (98-107) mmol/L Carbon Dioxide (22-30) mmol/L Anion Gap (5-15) MEQ/L BUN (7-17) mg/dL Creatinine (0.52-1.04) mg/dL Estimated GFR ML/MIN Glucose (74-106) mg/dL Calcium (8.4-10.2) mg/dL Total Bilirubin (0.2-1.3) mg/dL AST (14-36) U/L ALT (0-35) U/L Alkaline Phosphatase (38-126) U/L Serum Total Protein (6.3-8.2) g/dL Albumin (3.5-5.0) g/dL Slides for Path Review YES 01/05/20 01/06/20 Range/Units 21:50 00:44 WBC (4.0-10.5) K/mm3 RBC (4.1-5.4) M/mm3 Hgb (12.0-16.0) gm/dl Hct (35-47) % MCV (78-100) fl MCH (26-32) pg MCHC (32-36) g/dl RDW (11.5-14.0) % Plt Count (150-450) K/mm3 MPV (7.5-11.0) fl Gran % (36.0-66.0) % Eos # (Auto) (0-0.5) Absolute Lymphs (auto) (1.0-4.6) Absolute Monos (auto) (0.0-1.3) Lymphocytes % (24.0-44.0) % Monocytes % (0.0-12.0) % Eosinophils % (0.00-5.0) % Basophils % (0.0-0.4) % Absolute Granulocytes (1.4-6.9) Basophils # (0-0.4) Puncture Site LEFT RADIAL pCO2 73 H* (35-45) mmHg pO2 68 L (75-100) mmHg Base Excess 10.5 H (-2.0-2.0) O2 Saturation 93.9 L (94-100) g/dF ABG pH 7.34 L (7.35-7.45) ABG HCO3 39.4 H* (22-28) ABG O2 Sat (Measured) 95.5 (95-100) % Americo Test NO A-a Gradient 126 a/A Ratio 0.35 Hemoglobin 9.7 Carboxyhemoglobin 1.1 (0.0-6.9) % THgb Methemoglobin 0.6 L (1.4-1.5) % Potassium 4.0 4.2 (3.5-5.1) Temperature 37.0 C POC O2 Flow Rate 40 % Vent Mode BiPAP Inspiratory BiPAP 14 Expiratory BiPAP 6 Sodium 141 (137-145) mmol/L Chloride 102 (98-107) mmol/L Carbon Dioxide 37 H (22-30) mmol/L Anion Gap 6.0 (5-15) MEQ/L BUN 20 H (7-17) mg/dL Creatinine 0.94 (0.52-1.04) mg/dL Estimated GFR > 60.0 ML/MIN Glucose 95 (74-106) mg/dL Calcium 7.9 L (8.4-10.2) mg/dL Total Bilirubin 0.40 (0.2-1.3) mg/dL AST 23 (14-36) U/L ALT 12 (0-35) U/L Alkaline Phosphatase 148 H (38-126) U/L Serum Total Protein 6.0 L (6.3-8.2) g/dL Albumin 2.9 L (3.5-5.0) g/dL Slides for Path Review Radiology Exams: Radiology Procedures Category Date Time Status CHEST 1 VIEW (PORTABLE) Routine Exams 01/05/20 11:46 Completed Multi-Disciplinary Progress Notes: Multi-Disciplinary Progress Notes 01/06/20 11:45 Case Management Note by Nancie Pichardo S/W [facility] AND NOTIFIED THEM THAT PATIENT IS HERE INPT, THEY VERIFIED UNDERSTANDING. WE NEED TO NOTIFY THEM AT TIME OF DC SO THEY CAN RESUME SERVICES. WILL ALSO NEED TO FAX DC INSTRUCTIONS AND MED LIST TO THEM AT THAT TIME Initialized on 01/06/20 11:45 - END OF NOTE 01/05/20 15:07 Respiratory Note by Nathaly Malhotra The patient states she does not wear Oxygen at home. Initialized on 01/05/20 15:07 - END OF NOTE Assessment/Plan (1) Decubitus skin ulcer Current Visit: Yes Status: Acute Qualifiers: Pressure injury location: heel Pressure injury stage: pressure injury of deep tissue Laterality: left Qualified Code(s): L89.626 - Pressure-induced deep tissue damage of left heel Assessment & Plan: Chief Complaint Diagnosis anemia, Weakness Allergies Allergy/AdvReac Type Severity Reaction Status Date / Time adhesive tape AdvReac Intermediate Skin Verified 01/03/20 19:49 Irritation Vital Signs (Last 24 hours) Temp Pulse Resp BP Pulse Ox 01/06/20 11:07 91 L 01/06/20 08:00 98.5 F 67 20 105/54 92 L 01/06/20 04:00 99.7 F 58 L 24 116/53 97 01/06/20 00:00 99.8 F 70 14 113/51 94 L 01/05/20 20:03 90 L 01/05/20 20:00 99.1 F 74 22 118/53 95 01/05/20 16:00 99.8 F 66 116/53 93 L 01/05/20 15:24 93 L 01/05/20 12:00 97.5 F 72 20 144/59 82 L Current Medications Generic Name Dose Route Start Last Admin Trade Name Freq PRN Reason Stop Dose Admin Acetaminophen 650 mg 01/03/20 19:15 01/06/20 03:37 Tylenol 325 Mg PO 02/02/20 19:14 650 mg Q4H PRN PRN Administration PAIN, FEVER, HEADACHE Amlodipine Besylate 10 mg 01/03/20 22:00 01/05/20 22:50 Norvasc 5 Mg PO 02/02/20 21:59 Not Given HS LAUREN Apixaban 5 mg 01/03/20 22:00 01/06/20 07:56 Eliquis 2.5 Mg Tablet PO 02/02/20 21:59 5 mg BID LAUREN Administration Benazepril HCl 40 mg 01/03/20 22:00 01/05/20 22:50 Lotensin 10 Mg PO 02/02/20 21:59 Not Given HS LAUREN Calcium Carbonate/Glycine 1,500 mg 01/04/20 23:00 01/06/20 07:57 Tums Ex 750 Mg PO 02/03/20 22:59 1,500 mg DAILY LAUREN Administration Clotrimazole 30 gm 01/04/20 22:00 01/06/20 07:56 Lotrimin Cream 30 Gm TP 02/03/20 21:59 30 gm BID LAUREN Administration Sodium Chloride 1,000 mls @ 0 mls/hr 01/03/20 19:15 01/06/20 00:41 Sodium Chloride 0.9% 1000 Ml IV 30 mls/hr .Q20H LAUREN Administration KVO Insulin Human Lispro 0 unit 01/03/20 19:15 01/05/20 17:39 Humalog SQ 02/02/20 19:14 3 unit UD PRN Administration HYPERGLYCEMIA Levothyroxine Sodium 25 mcg 01/04/20 14:00 01/06/20 07:56 Synthroid 25 Mcg PO 02/03/20 13:59 25 mcg QAM LAUREN Administration Metformin HCl 500 mg 01/03/20 22:00 01/05/20 22:50 Glucophage 500 Mg PO 02/02/20 21:59 Not Given HS LAUREN Ondansetron HCl 4 mg 01/03/20 19:15 Zofran 4 Mg/2 Ml Vial IV 02/02/20 19:14 Q6H PRN PRN NAUSEA/VOMITING Pantoprazole Sodium 40 mg 01/04/20 10:00 01/06/20 07:56 Protonix 40mg Tablet PO 02/03/20 09:59 40 mg DAILY LAUREN Administration Simvastatin 10 mg 01/03/20 22:00 01/05/20 22:50 Zocor 10mg PO 02/02/20 21:59 Not Given HS LAUREN Discontinued Medications Generic Name Dose Route Start Last Admin Trade Name Freq PRN Reason Stop Dose Admin Cyanocobalamin 1,000 mcg 01/05/20 10:30 01/05/20 10:24 Cyanocobalamin B-12 1000 Mcg/Ml SQ 01/05/20 10:31 1,000 mcg 1XONLY ONE Administration Furosemide 20 mg 01/04/20 22:15 01/04/20 22:36 Lasix 20 Mg/2 Ml IV 01/05/20 15:00 20 mg BETWEEN UNITS PRN Administration Elevated BNP Furosemide 40 mg 01/05/20 12:13 01/05/20 12:22 Lasix 40 Mg/4 Ml IV 01/05/20 12:14 40 mg STAT ONE Administration Furosemide 40 mg 01/05/20 15:50 01/05/20 16:17 Lasix 40 Mg/4 Ml IV 01/05/20 15:51 40 mg NOW ONE Administration Furosemide 40 mg 01/05/20 20:00 01/05/20 20:00 Lasix 40 Mg/4 Ml IV 01/05/20 20:01 40 mg ONCE ONE Administration Sodium Chloride 1,000 mls @ 999 mls/hr 01/03/20 12:54 01/03/20 14:11 Sodium Chloride 0.9% 1000 Ml IV 01/03/20 13:54 Infused .Q1H1M STA Infusion Sodium Chloride Confirm 01/03/20 13:07 Sodium Chloride 0.9% 1000 Ml Administered 01/03/20 13:08 Dose 1,000 mls @ ud .ROUTE .STK-MED ONE Sodium Chloride 500 mls @ 50 mls/hr 01/04/20 17:30 01/06/20 07:43 Sodium Chloride 0.9% 500 Ml IV 02/03/20 17:29 Not Given .Q10H LAUREN Potassium Bicarbonate 25 meq 01/04/20 23:00 01/04/20 23:04 K-Lyte 25 Meq PO 02/03/20 22:59 25 meq 2300 LAUREN Administration Intake & Output (Last 24 hours) 01/03/20 01/04/20 01/05/20 01/06/20 11:59 11:59 11:59 11:59 Intake Total 1227 2960 1978 Output Total 940 277 7612 Balance 577 2160 -3072 Weight 160.8 kg 162.6 kg Microbiology Results (Last 24 hours) 01/04/20 05:19 Abdomen - Left Lower Quadrant Wound Culture - Preliminary 01/04/20 05:20 Heel - Left Wound Culture - Preliminary Proteus [facility]abil[facility] Laboratory Results (Last 24 hours) 01/06/20 01/05/20 01/05/20 00:44 21:50 21:50 WBC 8.4 RBC 3.94 L Hgb 9.7 L Hct 34.1 L MCV 86.5 MCH 24.6 L MCHC 28.4 L RDW 17.5 H Plt Count 169 MPV 9.3 Gran % 76.9 H Eos # (Auto) 0.06 Absolute Lymphs (auto) 1.32 Absolute Monos (auto) 0.55 Lymphocytes % 15.7 L Monocytes % 6.5 Eosinophils % 0.7 Basophils % 0.2 Absolute Granulocytes 6.47 Basophils # 0.02 Puncture Site LEFT RADIAL pCO2 73 H* pO2 68 L Base Excess 10.5 H O2 Saturation 93.9 L ABG pH 7.34 L ABG HCO3 39.4 H* ABG O2 Sat (Measured) 95.5 Americo Test NO A-a Gradient 126 a/A Ratio 0.35 Hemoglobin 9.7 Carboxyhemoglobin 1.1 Methemoglobin 0.6 L Potassium 4.2 4.0 Temperature 37.0 POC O2 Flow Rate 40 Vent Mode BiPAP Inspiratory BiPAP 14 Expiratory BiPAP 6 Sodium 141 Chloride 102 Carbon Dioxide 37 H Anion Gap 6.0 BUN 20 H Creatinine 0.94 Estimated GFR > 60.0 Glucose 95 Calcium 7.9 L Total Bilirubin 0.40 AST 23 ALT 12 Alkaline Phosphatase 148 H Serum Total Protein 6.0 L Albumin 2.9 L Slides for Path Review YES 01/05/20 01/05/20 21:47 20:45 WBC RBC Hgb Hct MCV MCH MCHC RDW Plt Count MPV Gran % Eos # (Auto) Absolute Lymphs (auto) Absolute Monos (auto) Lymphocytes % Monocytes % Eosinophils % Basophils % Absolute Granulocytes Basophils # Puncture Site LEFT RADIAL LEFT RADIAL pCO2 59 H 87 H* pO2 107 H 69 L Base Excess 10.4 H 8.4 H O2 Saturation 94.5 92.8 L ABG pH 7.41 7.26 L ABG HCO3 37.4 H* 39.0 H* ABG O2 Sat (Measured) 98.5 94.7 L Americo Test NO NO A-a Gradient 104 535 a/A Ratio 0.51 0.11 Hemoglobin 10.2 9.9 Carboxyhemoglobin 3.1 1.4 Methemoglobin 1.1 L 0.6 L Potassium 4.2 4.1 Temperature 37.0 37.0 POC O2 Flow Rate 40 100 Vent Mode BiPAP Inspiratory BiPAP 14 Expiratory BiPAP 6 Sodium Chloride Carbon Dioxide Anion Gap BUN Creatinine Estimated GFR Glucose Calcium Total Bilirubin AST ALT Alkaline Phosphatase Serum Total Protein Albumin Slides for Path Review Orders (Last 24 hours) Category Date Time Status CHEST 1 VIEW (PORTABLE) Routine Exams 01/05/20 11:46 Completed ABG [ARTERIAL BLOOD GASES] Routine Lab 01/05/20 21:47 Completed ABG [ARTERIAL BLOOD GASES] Routine Lab 01/06/20 00:44 Completed ABG [ARTERIAL BLOOD GASES] Urgent Lab 01/05/20 20:45 Completed CBC W DIFF Routine Lab 01/05/20 21:50 Completed CMP Routine Lab 01/05/20 21:50 Completed Furosemide 40 mg/4 ml [Lasix 40 MG/4 ML] Med 01/05/20 15:50 Discontinued 40 mg IV NOW ONE Furosemide 40 mg/4 ml [Lasix 40 MG/4 ML] Med 01/05/20 20:00 Discontinued 40 mg IV ONCE ONE Furosemide 40 mg/4 ml [Lasix 40 MG/4 ML] Med 01/05/20 12:13 Discontinued 40 mg IV STAT ONE BiPap/CPAP STAT RT 01/05/20 21:14 Active Pulse Oximetry .continuos RT 01/06/20 05:45 Active Respiratory Therapy Consult ROUTINE RT 01/05/20 15:55 Completed Patient Care Notes (Last 24 hours) 01/06/20 11:45 Case Management Note by Nancie Pichardo S/W [facility] AND NOTIFIED THEM THAT PATIENT IS HERE INPT, THEY VERIFIED UNDERSTANDING. WE NEED TO NOTIFY THEM AT TIME OF DC SO THEY CAN RESUME SERVICES. WILL ALSO NEED TO FAX DC INSTRUCTIONS AND MED LIST TO THEM AT THAT TIME Initialized on 01/06/20 11:45 - END OF NOTE 01/06/20 03:56 Nursing Note by Chemo Montero Pt alert and oriented x3 at this time. Able to follow commands. Able to take sips of water without difficulty. Did cough after larger drink of water. Gave Tylenol for temp of 99.7 and generalized aches. Initialized on 01/06/20 03:56 - END OF NOTE 01/05/20 18:30 (created 01/05/20 20:14) Nursing Note by Kaylyn Thompson Pt. diuresed total of 1850ml this shift. Lungs have faint expiratory whz's throughout, but less tight. SaO2 95% on 15L per oxymask. Dr. Salomon given update on pt. status and new orders received. Initialized on 01/05/20 20:14 - END OF NOTE 01/05/20 15:07 Respiratory Note by Nathaly Malhotra The patient states she does not wear Oxygen at home. Initialized on 01/05/20 15:07 - END OF NOTE 01/05/20 12:20 (created 01/05/20 12:39) Nursing Note by Kaylyn Thompson Lungs have tight exp. wheezes throughout. SAO2 82% on 7L per oxymask. RR 30. RT and Dr. Salomon notified. O2 was increased to 15L per oxymask by RT and new order for Lasix 40mg IV obtained. 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
[2020-01-06] MEDS: Levofloxacin 500 MG Tablet PO SCH (14:57)
[2020-01-06] MEDS: Lotensin 10 MG PO SCH (22:07)
[2020-01-06] MEDS: NORVASC 5 MG PO SCH (22:11)
[2020-01-06] MEDS: Glucophage 500 MG PO SCH (22:11)
[2020-01-06] MEDS: Zocor 10MG PO SCH (22:13)
[2020-01-07] MEDS: TYLENOL 325 MG PO PRN (07:20)
[2020-01-07 07:39] VITALS: O2SAT 93
[2020-01-07] MEDS: Tums EX 750 MG PO SCH (09:00)
[2020-01-07] MEDS: Protonix 40MG Tablet PO SCH (09:00)
[2020-01-07] MEDS: SYNTHROID 25 MCG PO SCH (09:00)
[2020-01-07] MEDS: LOTRIMIN CREAM 30 GM TP SCH (09:00)
[2020-01-07] MEDS: Levofloxacin 500 MG Tablet PO SCH (09:00)
[2020-01-07] MEDS: ELIQUIS 2.5 MG TABLET PO SCH (09:00)
--- NOTE | 2020-01-07 09:06 | PCM.DS ---
Discharge Summary Date of Admission: 01/04/20 13:05 Admitting Physician: CONNIE YU DO Primary Care Provider: JUANITA SMITH Allergies Allergies adhesive tape Adverse Reaction (Intermediate, Verified 01/03/20 19:49) Skin Irritation Hospital Summary - Hospital Course Hospital Course: Chief Complaint Diagnosis anemia, Weakness Allergies Allergy/AdvReac Type Severity Reaction Status Date / Time adhesive tape AdvReac Intermediate Skin Verified 01/03/20 19:49 Irritation Vital Signs (Last 24 hours) Temp Pulse Resp BP Pulse Ox 01/07/20 07:35 98.3 F 58 L 18 105/51 93 L 01/07/20 04:00 97.8 F 68 30 H 110/56 95 01/07/20 00:00 100.3 F 70 24 103/51 91 L 01/06/20 20:51 91 L 01/06/20 20:00 98.4 F 73 36 H 106/53 91 L 01/06/20 16:00 97.8 F 69 22 112/53 94 L 01/06/20 11:59 97.6 F 69 22 145/58 94 L 01/06/20 11:07 91 L Current Medications Generic Name Dose Route Start Last Admin Trade Name Freq PRN Reason Stop Dose Admin Acetaminophen 650 mg 01/03/20 19:15 01/07/20 07:20 Tylenol 325 Mg PO 02/02/20 19:14 650 mg Q4H PRN PRN Administration PAIN, FEVER, HEADACHE Amlodipine Besylate 10 mg 01/03/20 22:00 01/06/20 22:11 Norvasc 5 Mg PO 02/02/20 21:59 10 mg HS LAUREN Administration Apixaban 5 mg 01/03/20 22:00 01/07/20 09:00 Eliquis 2.5 Mg Tablet PO 02/02/20 21:59 5 mg BID LAUREN Administration Benazepril HCl 40 mg 01/03/20 22:00 01/06/20 22:07 Lotensin 10 Mg PO 02/02/20 21:59 40 mg HS LAUREN Administration Calcium Carbonate/Glycine 1,500 mg 01/04/20 23:00 01/07/20 09:00 Tums Ex 750 Mg PO 02/03/20 22:59 1,500 mg DAILY LAUREN Administration Clotrimazole 30 gm 01/04/20 22:00 01/07/20 09:00 Lotrimin Cream 30 Gm TP 02/03/20 21:59 30 gm BID LAUREN Administration Sodium Chloride 1,000 mls @ 0 mls/hr 01/03/20 19:15 01/06/20 16:18 Sodium Chloride 0.9% 1000 Ml IV 30 mls/hr .Q20H LAUREN Administration KVO Insulin Human Lispro 0 unit 01/03/20 19:15 01/05/20 17:39 Humalog SQ 02/02/20 19:14 3 unit UD PRN Administration HYPERGLYCEMIA Levofloxacin 500 mg 01/06/20 15:00 01/07/20 09:00 Levofloxacin 500 Mg Tablet PO 02/05/20 14:59 500 mg DAILY LAUREN Administration Levothyroxine Sodium 25 mcg 01/04/20 14:00 01/07/20 09:00 Synthroid 25 Mcg PO 02/03/20 13:59 25 mcg QAM LAUREN Administration Metformin HCl 500 mg 01/07/20 17:00 Glucophage 500 Mg PO 02/06/20 16:59 DINNER LAUREN Ondansetron HCl 4 mg 01/03/20 19:15 Zofran 4 Mg/2 Ml Vial IV 02/02/20 19:14 Q6H PRN PRN NAUSEA/VOMITING Pantoprazole Sodium 40 mg 01/04/20 10:00 01/07/20 09:00 Protonix 40mg Tablet PO 02/03/20 09:59 40 mg DAILY LAUREN Administration Simvastatin 10 mg 01/03/20 22:00 01/06/20 22:13 Zocor 10mg PO 02/02/20 21:59 10 mg HS LAUREN Administration Discontinued Medications Generic Name Dose Route Start Last Admin Trade Name Freq PRN Reason Stop Dose Admin Cyanocobalamin 1,000 mcg 01/05/20 10:30 01/05/20 10:24 Cyanocobalamin B-12 1000 Mcg/Ml SQ 01/05/20 10:31 1,000 mcg 1XONLY ONE Administration Furosemide 20 mg 01/04/20 22:15 01/04/20 22:36 Lasix 20 Mg/2 Ml IV 01/05/20 15:00 20 mg BETWEEN UNITS PRN Administration Elevated BNP Furosemide 40 mg 01/05/20 12:13 01/05/20 12:22 Lasix 40 Mg/4 Ml IV 01/05/20 12:14 40 mg STAT ONE Administration Furosemide 40 mg 01/05/20 15:50 01/05/20 16:17 Lasix 40 Mg/4 Ml IV 01/05/20 15:51 40 mg NOW ONE Administration Furosemide 40 mg 01/05/20 20:00 01/05/20 20:00 Lasix 40 Mg/4 Ml IV 01/05/20 20:01 40 mg ONCE ONE Administration Sodium Chloride 1,000 mls @ 999 mls/hr 01/03/20 12:54 01/03/20 14:11 Sodium Chloride 0.9% 1000 Ml IV 01/03/20 13:54 Infused .Q1H1M STA Infusion Sodium Chloride Confirm 01/03/20 13:07 Sodium Chloride 0.9% 1000 Ml Administered 01/03/20 13:08 Dose 1,000 mls @ ud .ROUTE .STK-MED ONE Sodium Chloride 500 mls @ 50 mls/hr 01/04/20 17:30 01/06/20 07:43 Sodium Chloride 0.9% 500 Ml IV 02/03/20 17:29 Not Given .Q10H LAUREN Metformin HCl 500 mg 01/03/20 22:00 01/06/20 22:11 Glucophage 500 Mg PO 02/02/20 21:59 Not Given HS LAUREN Potassium Bicarbonate 25 meq 01/04/20 23:00 01/04/20 23:04 K-Lyte 25 Meq PO 02/03/20 22:59 25 meq 2300 LAUREN Administration Intake & Output (Last 24 hours) 01/04/20 01/05/20 01/06/20 01/07/20 11:59 11:59 11:59 11:59 Intake Total 1227 2960 1978 2951 Output Total 489 351 2010 1100 Balance 577 2160 -3072 1851 Weight 160.8 kg 162.6 kg 158.3 kg 158.4 kg Microbiology Results (Last 24 hours) 01/04/20 05:19 Abdomen - Left Lower Quadrant Wound Culture - Preliminary 01/04/20 05:20 Heel - Left Wound Culture - Preliminary Proteus Mirabilis Orders (Last 24 hours) Category Date Time Status Levofloxacin [Levofloxacin 500 MG Tablet] Med 01/06/20 15:00 Active 500 mg PO DAILY Metformin HCl 500 mg [Glucophage 500 MG] Med 01/07/20 17:00 Active 500 mg PO DINNER Patient Care Notes (Last 24 hours) 01/06/20 13:06 Case Management Note by Nancie PichardoNIFIER [facility] BE [facility] TO SEE PATIENT Initialized on 01/06/20 13:06 - END OF NOTE 01/06/20 12:51 Case Management Note by Nancie Pichardo REFERRAL SENT TO [facility] AT THIS TIME Initialized on 01/06/20 12:51 - END OF NOTE 01/06/20 11:59 Case Management Note by Nancie Pichardo ATTEMPTED TO CALL [facility] AND TO DISCUSS DC PLANS- NO ANSWER AT THIS TIME Initialized on 01/06/20 11:59 - END OF NOTE 01/06/20 11:45 Case Management Note by Nancie Pichardo S/W [facility] AND NOTIFIED THEM THAT PATIENT IS HERE INPT, THEY VERIFIED UNDERSTANDING. WE NEED TO NOTIFY THEM AT TIME OF DC SO THEY CAN RESUME SERVICES. WILL ALSO NEED TO FAX DC INSTRUCTIONS AND MED LIST TO THEM AT THAT TIME Initialized on 01/06/20 11:45 - END OF NOTE - Vitals & Intake/Output Vital Signs: Vital Signs Temperature 98.3 F 01/07/20 07:35 Pulse Rate 58 L 01/07/20 07:35 Respiratory Rate 18 01/07/20 07:35 Blood Pressure 105/51 01/07/20 07:35 O2 Sat by Pulse Oximetry 93 L 01/07/20 07:35 Intake & Output: Intake & Output 01/04/20 01/05/20 01/06/20 01/07/20 11:59 11:59 11:59 11:59 Intake Total 1227 2960 1978 2951 Output Total 354 909 0712 1100 Balance 577 2160 -3072 1851 Weight 160.8 kg 162.6 kg 158.3 kg 158.4 kg - Lab Result Diagrams: 01/05/20 21:50 01/05/20 21:50 Lab Results-Last 24 Hrs: Accuchecks Date 01/07/20 Date 01/06/20 Date 01/06/20 Time 08:05 Time 16:43 Time 12:33 Accucheck Value: 92 Accucheck Value: 119 Accucheck Value: 116 Accucheck Value: 204 Micro Results-Entire Visit: Microbiology 01/04/20 05:19 Wound Culture - Preliminary Abdomen - Left Lower Quadrant 01/04/20 05:20 Wound Culture - Preliminary Heel - Left Proteus Mirabilis Accuchecks Date 01/07/20 Date 01/06/20 Date 01/06/20 Time 08:05 Time 16:43 Time 12:33 Accucheck Value: 92 Accucheck Value: 119 Accucheck Value: 116 Accucheck Value: 204 - Radiology Exams Ordered Rad Exams-Entire Visit: Radiology Procedures Category Date Time Status CHEST 1 VIEW (PORTABLE) Routine Exams 01/05/20 11:46 Completed - Procedures and Test Procedures and Tests throughout Hospitalization: Therapy Orders & Screens 01/04/20 07:56 Oxygen Nasal Cannula 4 lpm Comment: Diagnosis: Weakness 01/05/20 15:55 Respiratory Therapy Consult ROUTINE Comment: Reason For Exam: Diagnosis: anemia, Weakness 01/05/20 21:14 BiPap/CPAP STAT Comment: Diagnosis: anemia, Weakness Discharge Exam General Appearance: no apparent distress, alert Neurologic Exam: alert, oriented x 3, cooperative, normal mood/affect, nml cerebellar function, sensation nml, No motor deficits Eye Exam: PERRL, EOMI, eyes nml inspection Ears, Nose, Throat Exam: normal ENT inspection, pharynx normal, moist mucous membranes Neck Exam: normal inspection, non-tender, supple, full range of motion Respiratory Exam: normal breath sounds, lungs clear, No respiratory distress Cardiovascular Exam: regular rate/rhythm, normal heart sounds Gastrointestinal/Abdomen Exam: soft, No tenderness, No mass Pelvic Exam: deferred Rectal Exam: deferred Back Exam: normal inspection, normal range of motion, No CVA tenderness, No vertebral tenderness Extremity Exam: normal inspection, normal range of motion Skin Exam: normal color, warm, dry Wound Assessment: Skin/Wound Assessment Wound/Incision Assessment Start: 01/03/20 21: 12 Text: Status: Active Freq: Q6H Protocol: Document 01/07/20 07:28 NEREIDA (Rec: 01/07/20 07:30 NEREIDA [id number]) Wound/Incision Assessment Lower Medial Sacrum Wound Assessment Shift Assessment Wound Type Pressure Ulcer Wound Stage Stage II Length (cm) (cm) 1 Width (cm) (cm) 1 Comment BARRIER CREAM APPLIED Right Buttock Wound Assessment Shift Assessment Wound Type Pressure Ulcer Wound Stage Stage II Dressing Status Dry & Intact Drainage Amount None Length (cm) (cm) 4 Width (cm) (cm) [address] Left Lower Buttock Wound Assessment Shift Assessment Wound Type Pressure Ulcer Wound Stage Stage II Drainage Amount None Length (cm) (cm) 5 Width (cm) (cm) 4 Comment [address]ESSING IN PL[address] Left Heel Wound Assessment Shift Assessment Wound Type Pressure Ulcer Drainage Amount Minimal Drainage Description Serosanguineous Drainage Odor None/Absent Length (cm) (cm) 3 Width (cm) (cm) 1.5 Primary Dressing Telfa Secondary Dressing Gauze Roll/Wrap Comment DRESSING CLEAN DRY AND INTACT Wound Photo Photo Taken Yes Date: 01/04/20 Comment: Pictures in pts chart Final Diagnosis/Problem List - Final Discharge Diagnosis/Problem (1) Decubitus skin ulcer Current Visit: Yes Status: Acute Code(s): L89.90 - PRESSURE ULCER OF UNSPECIFIED SITE, UNSPECIFIED STAGE (2) Anemia due to blood loss, chronic Current Visit: Yes Status: Acute Code(s): D50.0 - IRON DEFICIENCY ANEMIA SECONDARY TO BLOOD LOSS (CHRONIC) (3) Anticoagulant long-term use Current Visit: Yes Status: Acute Code(s): Z79.01 - NURSING HOME (CURRENT) USE OF ANTICOAGULANTS (4) Morbid obesity Current Visit: No Status: Acute Code(s): E66.01 - MORBID (SEVERE) OBESITY DUE TO EXCESS CALORIES (5) Physical deconditioning Current Visit: No Status: Acute Code(s): R53.81 - OTHER MALAISE - Discharge Discharge Date: 01/07/20 Disposition: Home, Self-Care Condition: Stable Prescriptions: No Action Metformin HCl 500 mg [Glucophage 500 MG] 500 mg PO DINNER Apixaban [Eliquis 5 mg Tablet] 5 mg PO BID Amlodipine Besylate/Benazepril [Amlodipine-Benazepril 10-40 mg] 1 each PO HS Omeprazole 40 mg PO DAILY Atorvastatin Calcium 10 mg PO HS Acetaminophen [Tylenol Arthritis] 650 mg PO BID PRN PRN PRN Reason: Pain Follow up with: JUANITA SMITH MD [Primary Care Provider] - 1 Week
[2020-01-07 12:00] VITALS: BP 106/59; PULSE 56
[2020-01-07] MEDS ORDERED: Glucophage 500 MG PO SCH (17:00)
== END 2020-01-07 12:42 | DRG 593 ==
LOC: ED 12:27 → MED SURG 19:05 → INTOOBSV 01-04 13:05 → OBSVTOIN 01-04 13:05
PROVIDERS: ADMIT Family Medicine; ATTEND General Practice
DX: L89.152 Pressure ulcer of sacral region, stage 2 (principal); I48.20 Chronic atrial fibrillation, unspecified; L89.322 Pressure ulcer of left buttock, stage 2; L89.312 Pressure ulcer of right buttock, stage 2; L89.629 Pressure ulcer of left heel, unspecified stage; R53.1 Weakness; W19.XXXA Unspecified fall, initial encounter; I10 Essential (primary) hypertension; D50.0 Iron deficiency anemia secondary to blood loss (chronic); R06.03 Acute respiratory distress; R51 Headache; E03.9 Hypothyroidism, unspecified; E11.9 Type 2 diabetes mellitus without complications; E66.01 Morbid (severe) obesity due to excess calories; Z79.01 Long term (current) use of anticoagulants; Z79.899 Other long term (current) drug therapy
CPT/HCPCS: 36000; 36415; 36430; 36600; 51702; 70450; 71045; 80048; 80053; 81001; 82375; 82607; 82746; 82803; 82962; 83036; 83880; 84443; 84484; 85014; 85018; 85025; 86850; 86900; 86901; 86922; 87070; 87077; 87186; 93005; 94002; 94003; 94760; 94762; 96360; 99285; G0378; P9016; J1817; J1940; J3420; A9270-GY